=== PATIENT | male | born 1945 | race Caucasian/White ===

== ENCOUNTER → 2019-02-25 15:09 | Outpatient (CLI) | payer MEDICARE, OTHER, SELFPAY ==
[2019-02-25 14:26] VITALS: BMI 36.4
[2019-02-25 15:35] LABS: Hematocrit 42.9 % (40-54); Hemoglobin 13.7 g/dl (13.0-16.5); Mean Corp Hgb Conc 31.9 g/gl (32-36); Mean Corpuscular Hgb 26.2 pg (27.0-32.0); Mean Corpuscular Volume 82.2 fL (80-94); Mean Platelet Vol. 9.3 fl (6.2-12.0); Platelet Count 188 K/mm3 (150-450); RBC Distribution Width CV 16.6 % (11.6-14.6); Red Blood Count 5.22 M/mm3 (4.6-6.2); White Blood Count 6.1 K/mm3 (4.4-11.0)
[2019-02-25 15:36] LABS: Scan Indicated on CBC? Y/N NO
== END ==
PROVIDERS: Family Provider Family Medicine; PCP Family Medicine; Referring Provider Surgery; Visit Provider Surgery
DX: R19.5 Other fecal abnormalities (principal)
CPT/HCPCS: 36415; 85027

== ENCOUNTER 2019-03-27 06:44 | Day surgery (SDC) | payer MEDICARE, OTHER, SELFPAY ==
--- NOTE | 2019-02-25 05:01 | HP_ITS ---
Intake Vital Signs 02/25/19 Height 6 ft 02/25/19 Weight: 269 lb 02/25/19 Body Mass Index (BMI) 36.4 02/25/19 Blood Pressure 126/68 H 02/25/19 Blood Pressure Location Rt brachial 02/25/19 Blood Pressure Position Sitting 02/25/19 Respiratory Rate 18 02/25/19 Pulse Rate 60 02/25/19 Pulse Source Monitor 02/25/19 Temperature 98.3 F 02/25/19 Temperature Source Oral 02/25/19 Pulse Ox 94 02/25/19 Oxygen Delivery Method room air Intake Visit Reasons: POSITIVE COLOGARD TEST Building Official Required: No Is patient in pain?: No Allergies No Known Allergies Allergy (Unverified 02/25/19 14:27) Medications albuterol sulfate HFA 90 mcg/actuation aerosol inhaler 2 puff INHALATION Q6H PRN 02/25/19 [History Confirmed 02/25/19] aspirin 81 mg tablet,delayed release 81 mg PO DAILY 02/25/19 [History Confirmed 02/25/19] atorvastatin 20 mg tablet 20 mg PO DAILY 02/25/19 [History Confirmed 02/25/19] benazepril 20 mg tablet 20 mg PO DAILY 02/25/19 [History Confirmed 02/25/19] budesonide 90 mcg/actuation breath activated powder inhaler 1 inh INHALATION BID 02/25/19 [History Confirmed 02/25/19] [facility] Medical History Positive colorectal cancer screening using Cologuard test (Acute) Asthma (Acute) History of back problems (Acute) Hypercholesterolemia (Acute) Positive colorectal cancer screening using Cologuard test (Acute) Hypertension (Chronic) Surgical History repair broken collar bone (Acute) repairbilateral cataract surgery (Acute) Family History Mother Breast cancer Diabetes Hypertension Sister Breast cancer Social History Smoking Status: Never smoker alcohol intake: current alcohol intake frequency: a few times a week Alcohol type: hard liquor details: Drinks a bottle of whiskey per week. Occasional wine HPI HPI HPI: MISTI MORAN, is a 73 M who presents to the office today for HPI HPI Surgical H&P: Yes HPI: MISTI MORAN, is a 73 M who presents to the office today for positive Cologuard test. 2008 he had a colonoscopy. He states that this was not very comfortable. He has no family history of colon cancer. There was a period of time where he is felt to be anemic and he was placed on iron therapy. A different primary care physician however stopped that. He is not aware that he has had any peptic ulcer disease. He does take daily low-dose aspirin. His last blood work proximally June 2018. He has not noticed any bright red blood per rectum or melena. Cologuard test was positive. He has never had an upper endoscopy. What triggered the positive DNA or hemoglobin test unclear nor is the source. ROS General General: No weight change, appetite, fatigue, colon cancer, breast cancer or weakness HEENT HEENT: Yes eye surgery; no difficulty swallowing, eye injury, swollen glands or hoarseness Endo Endocrine: No thyroid disease, diabetes mellitus, thyroid cancer, Hair loss, heat intolerance or cold intolerance Skin Skin: Yes rash and changing moles Breast Breast: No left breast lump, right breast lump, nipple discharge, breast pain, abnormal mammogram, abnormal US or breast enlargement Musc Musculoskeletal: Yes back problems; no arthritis, rheumatoid arthritis, gout or joint pain Cardio Cardiovascular: Yes high blood pressure; no murmur, pacemaker, heart disease, atrial fibrillation, heart attack, heart stent, palpitations, shortness of breat with exertion or chest pain Psych Psychiatric: No depression, anxiety or hearing voices Resp Respiratory: No shortness of breath, No sleep apnea, No cough, No COPD, Yes asthma, No emphysema, No wheezing Gastro Gastrointestinal: No abdominal pain, No nausea or vomiting, No diarrhea, No constipation, No blood in stool, No acid reflux, No hemorrhoids, No ulcers, No gallbladder problem, No black,tarry stools Andrew Hematologic: No blood thinners, No blood disorders, No bleeding, No anemia, No blood clots Neuro Neurologic: No system reviewed and no additional complaints, except as docu, No as per HPI, No abnormal walking, No abnormal hearing, No abnormal movements, No abnormal speech, No behavioral changes, No burning sensations, No confusion, No seizure-like activity, No unsteadiness, No dizziness, No localized weakness, No frequent falls, No headache(s), No lack of coordination, No loss of vision, No memory loss, No numbness, No other visual disturbances, No radiating pain, No restless legs, No sensory deficit, No fainting, No tingling, No tremor(s), No weakness, No other Exam Const General: cooperative Nutritional Appearance: obese Orientation: alert, awake, oriented x3 HENMT Head: normal to inspection Chest Chest palpation & inspection: normal inspection of the chest Breast Palpation: No nipple discharge Resp Effort & Inspection: normal respiratory effort Auscultation: clear to auscultation bilaterally Cardio Rate: regular rate Rhythm: regular rhythm Heart Sounds: no murmurs GI Palpation: soft, no hepatosplenomegaly Other: Small umbilical hernia, normal bowel sounds Musc Cervical Spine: normal cervical lordosis Skin General: excoriations (Chest, arms, legs) Neuro Cognition: normal cognition Extrem General: no calf tenderness bilaterally Psych Affect: normal affect Assessment & Plan Problems 1. Positive colorectal cancer screening using Cologuard test R19.5 Plan The source of the patient's positive hemoglobin and/or DNA test in the form of Cologuard is unclear whether this is from a upper GI or lower GI source. I have offered the patient a esophagogastroduodenoscopy with possible biopsy and colonoscopy with possible biopsy or polypectomy as indicated. The patient had a uncomfortable previous colonoscopy in 2008. I anticipate having this performed with monitored anesthesia care. We will update his laboratory with a CBC. There is this questionable history of remote anemia. He has had an opportunity to ask and have questions answered. I very much appreciate the kind opportunity of assisting with his surgical care. We will schedule and proceed at his discretion. CC: Dr. Reji Spears M.D., F.A.C.S. Orders Orders: Colonoscopy Today R19.5 EGD Today R19.5 CBC-Complete Blood Cnt No Diff Today R19.5 Coding Level of Care Code Off vis,new,level 3 Diagnoses Positive colorectal cancer screening using Cologuard test R19.5 02/25/19 1701 <Electronically signed by Kevin lowe MD> Date _ Kevin Spears MD I have re-examined the patient. There are no clinical changes since date of exam.
[2019-02-25 14:26] VITALS: BMI 36.4
[2019-03-27] VITALS (7 sets, daily range): BP systolic 62–116; BP diastolic 32–84; PULSE 58–71; RESP 14–18; TEMP 36.2–36.6; O2SAT 88–98; BMI 36.1
--- NOTE | 2019-03-27 08:00 | IMM_PTH ---
PATIENT: MISTI MORAN LOC: EN U#:[id number] AGE/SX: 73/M ROOM: RE03/27/[address]: Dr. Kevin Spears MD : 1945 BED: DIS: 03/27/2019 SPEC #: [id number] RECD: 03/27/19 11:29 STATUS: ALANIS RECecil #: [id number] MECHELLE: 03/27/19 08:[address]: Kevin Spears DEPT: IMMUNOHISTOCHEMISTRY RECD BY: Nilsa Amaya ENTERED: 03/27/19 11:29 SP TYPE: IMMUNO OTHR DR: Dr. Reji Waite MD Tissues: A - Stomach, NOS B - Stomach, NOS Procedures: Synapto (add) CK8 (initial) H Pylori (initial) CD56 (add) CHROMO (add) CK20 (add) CK7 (add) PHYSICIAN & INSTITUTION [place] [id number] SPECIMEN INFORMATION: Tissue Source: A - Antrum biopsy, B - Proximal greater curvature, submucosal mass biopsy Clinical Info: Positive Cologuard test Specimen Number: [id number] & B CPT code: 10087 x2, 09161 x6 METHODOLOGY: Deparaffinized sections of prefer/formalin-fixed tissue or PAP/DQ stained slides are incubated with monoclonal/polyclonal antibodies/oligonucleotide probes. Localization is made via biotin free immunoperoxidase method. Appropriate controls are performed and reacted as expected. Results on target cell population are indicated in the following table: RESULTS: ANTIBODY / CLONE RESULT Block A H Pylori (polyclonal) negative Block B CK7 (OV-TL12/30) negative CK8 (23jdscG83) positive CK20 (KS20.8) negative Chromo (LK2H10) positive, focal Synapto (polyclonal) positive CD56 (123C3.D5) positive Ki-67 (30-9) positive (~15%) These tests were developed and their performance characteristics determined by [facility]. They may not have been cleared or approved by the U.S. Food and Drug Administration. The FDA has determined that such clearance or approval is not necessary. INTERPRETATION: A. Antrum biopsy: Negative for Helicobacter pylori organisms. B. Proximal greater curvature, submucosal mass, biopsy: Well differentiated neuroendocrine tumor (G2), consistent with sporadic (type 3) gastric endocrine tumor. See comment. DENYS:carrie 04/06/19 Comment: B - The specimen was sent to [facility] for expert opinion and reviewed by Dr. Willson and above diagnosis is rendered. The complete report is viewable in the patient's EMR. Case has been reviewed in consultation with Dr. Chino who concurs with the above diagnosis. IDC:[email or web address]
--- NOTE | 2019-03-27 08:00 | EGD_PTH ---
PATIENT: MISTI MORAN LOC: EN U#:[id number] AGE/SX: 73/M ROOM: RE03/27/[address]: Dr. Kevin Spears MD : 1945 BED: DIS: 03/27/2019 SPEC #: [id number] RECD: 03/27/19 09:33 STATUS: ALANIS JAYNE #: [id number] MECHELLE: 03/27/19 08:[address]: Kevin Spears DEPT: SURGICAL PATHOLOGY RECD BY: Lois Sullivan ENTERED: 03/27/19 10:17 SP TYPE: EGD BIOPSY OT DR: Dr. Reji Waite MD Tissues: A - Gastric mucous membrane B - Gastric mucous membrane C - Esophagus, NOS D - Gastric mucous membrane E - Sigmoid colon biopsy Procedures: Surgery Specimen Level IV HEADER OPERATION: Colonoscopy, EGD ([facility] [place]) PRE-OP DIAGNOSIS: Positive Cologuard test TISSUE SUBMITTED: A. Antrum biopsy for histo and H. pylori, B. Proximal greater curve, submucosal mass biopsy, C. Distal esophagus biopsy, D. Hepatic flexure polyp, E. Distal sigmoid polyp MICROSCOPIC DIAGNOSIS A. Antrum biopsy: Mild gastritis. See microscopic description and comment. B. 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 Fundic mucosa within normal limits. See comment. C. Distal esophagus, biopsy: Fragments of squamous epithelium with mild chronic inflammation. D. Hepatic flexure polyp, biopsy: Fragments of hyperplastic polyp. Fragments of fecal material. E. Distal sigmoid polyp, biopsy: Fragments of tubular adenoma. SJ:carrie 04/06/19 COMMENT A. The results of immunohistochemistry for Helicobacter pylori will be reported separately ([id number]). B. Immunohistochemistry ([id number]) supports the above diagnosis. This case was sent to [facility] for expert opinion and reviewed by Dr. Willson and above diagnosis is rendered. The complete report is viewable in the patient's EMR. Case has been reviewed in consultation with Dr. Chino who concurs with the above diagnosis. IDC:AM MICROSCOPIC DESCRIPTION Slides are reviewed. A. The specimen shows fragments of gastric mucosa with chronic inflammatory cell infiltrates in the lamina propria consisting of lymphocytes and plasma cells, consistent with mild chronic gastritis. GROSS DESCRIPTION A - Received in fixative is one container labeled with the patient's name and designated antrum biopsy. The specimen consists of a single aevry-pink fragment of soft tissue measuring 0.5 x 0.1 x 0.1 cm. The specimen is totally submitted in one cassette. B - Received in fixative is one container labeled with the patient's name and designated proximal greater curvature submucosal mass. The specimen consists of four avery-pink fragments of soft tissue measuring in aggregate 0.5 x 0.3 x 0.2 cm. The specimen is totally submitted in one cassette. C - Received in fixative is one container labeled with the patient's name and designated distal esophagus biopsy. The specimen consists of a single reddish-pink fragment of soft tissue measuring 0.4 x 0.1 x 0.1 cm. The specimen is totally submitted in one cassette. D - Received in fixative is one container labeled with the patient's name and designated hepatic flexure polyp. The specimen consists of multiple irregular fragments of reddish-pink soft tissue and possible fecal material that in aggregate measure 0.3 x 0.2 x 0.1 cm. The specimen is totally submitted in one cassette. E - Received in fixative is one container labeled with the patient's name and designated distal sigmoid polyp. The specimen consists of three avery-pink polypoid fragments of mucosal-lined soft tissue ranging in diameter from 0.25 to 0.8 cm. The specimen is totally submitted in one cassette. / CE:carrie 03/27/19 TC:1 [facility]: [id number] x4
--- NOTE | 2019-04-01 10:44 | OP.ENDO_ITS ---
04/01/2019 Reji Waite Re : Upper GI endoscopy procedure for Kirill Waite This procedure was performed on Wednesday, March 27, 2019. My impressions and recommendations are as follows: Impressions : - Z-line regular, 40 cm from the incisors. - Small hiatal hernia. - Erythematous mucosa in the antrum. Biopsied. - Gastric tumor on the greater curvature of the stomach. Biopsied. - Normal examined duodenum. - Biopsies were taken with a cold forceps for histology at the gastroesophageal junction. Recommendations : - Discharge patient to home. - Resume previous diet. - Continue present medications. - Telephone my office for pathology results in 1 week. My findings are described in the full procedure note, which is enclosed. If I can be of further assistance, please feel free to contact me at Doctor phone number(s): Work: . Sincerely, Kevin Spears MD 03/27/2019 8:52:19 AM This report has been signed electronically.
--- NOTE | 2019-04-01 10:44 | OP.ENDO_ITS ---
04/01/2019 Reji Waite Re : Colonoscopy procedure for Kirill Waite This procedure was performed on Wednesday, March 27, 2019. My impressions and recommendations are as follows: Impressions : - Hemorrhoids found on perianal exam. - One 6 mm polyp at the hepatic flexure, removed with a cold snare. Resected and retrieved. - One 10 mm polyp in the distal sigmoid colon, removed with a hot snare. Resected and retrieved. - Diverticulosis in the sigmoid colon and in the descending colon. Recommendations : - Discharge patient to home. - Resume previous diet. - Continue present medications. - Repeat colonoscopy in 3 years for surveillance based on pathology results. - Telephone my office for pathology results in 1 week. My findings are described in the full procedure note, which is enclosed. If I can be of further assistance, please feel free to contact me at Doctor phone number(s): Work: . Sincerely, Kevin Spears MD 03/27/2019 8:56:44 AM This report has been signed electronically.
== END 2019-03-27 09:42 | disposition home or self-care (01) ==
LOC: EN 06:45 → AC 06:46
PROVIDERS: Family Provider Family Medicine; PCP Family Medicine; Referring Provider Family Medicine; Visit Provider Surgery
PROC: 0DJD8ZZ Inspection of Lower Intestinal Tract, Via Natural or Artificial Opening Endoscopic (ICD-10-PCS; CPT 45378; principal; 2019-03-27 07:55)
DX: R19.5 Other fecal abnormalities (principal); D64.9 Anemia, unspecified; E78.00 Pure hypercholesterolemia, unspecified; N40.0 Benign prostatic hyperplasia without lower urinary tract symptoms; I10 Essential (primary) hypertension; J45.909 Unspecified asthma, uncomplicated; K44.9 Diaphragmatic hernia without obstruction or gangrene; K31.89 Other diseases of stomach and duodenum; D49.0 Neoplasm of unspecified behavior of digestive system; K64.9 Unspecified hemorrhoids; D12.3 Benign neoplasm of transverse colon; D12.5 Benign neoplasm of sigmoid colon; K57.30 Diverticulosis of large intestine without perforation or abscess without bleeding
CPT/HCPCS: 43239; 45385; 88305; 88341; 88342; J7120; J2405

== ENCOUNTER → 2019-04-07 10:39 | Outpatient (CLI) | payer MEDICARE, OTHER, SELFPAY ==
[2019-03-27 07:09] VITALS: BMI 36.1
--- NOTE | 2019-04-07 10:42 | CT_ITS ---
STUDY: CT ABDOMEN AND PELVIS WITH CONTRAST REASON FOR EXAM: Male, 73 years old. Gastric mass seen on scope. RADIATION DOSAGE (If Supplied By Facility): CTDIvol = ( 15.45 ) mGy, DLP = ( 1523.54 ) mGycm TECHNIQUE: Transaxial images were obtained from the dome of the diaphragm to the symphysis pubis with oral contrast. 100ML ml of Isovue 300 contrast was administered. Sagittal and coronal images were reconstructed. Individualized dose optimization techniques were used for this CT. COMPARISON: None. FINDINGS: Body wall soft tissues: No acute process. Osseous structures: No acute process. Mild multilevel lumbar spondylosis with more prominent degenerative disc disease L5-S1 contributing to mild foraminal narrowing. Disc bulging at L4-L5 and facet hypertrophy also contribute to mild foraminal narrowing. Inferior chest: The lung bases are clear with hyperlucent features suggesting underlying COPD. Distal esophagus normal. Mild coronary cusp secretions are visible. No cardiomegaly or pericardial effusion. Minimal aortic valve annulus and leaflet calcifications. Hepatobiliary: Multiple small hepatic cystlike foci are present, nonenhancing, oval, sharply circumscribed margins, largest in the left liver 2.6 cm, and largest in the right liver 1.6 cm. Simple cystic features. Normal gallbladder and biliary tree. Pancreas: Moderate fatty atrophy. Spleen: Normal. Adrenal glands: Normal. Urogenital: Unremarkable kidneys, symmetric nephrograms. Normal collecting systems, ureters, urinary bladder, prostate and seminal vesicles. Pelvic floor and sidewalls and retroperitoneum: No mass or adenopathy. Vasculature: Mild atherosclerosis. Stomach: Initial imaging of the stomach was performed that did not contain oral contrast. The contrast had moved into the small bowel. Additional oral contrast was administered, and another set of abdominal images was obtained with the stomach properly filled with oral contrast. -Along the greater curvature of the gastric fundus there is a small oval projection from the gastric mucosa, measuring approximately 1 cm. This is difficult to distinguish from surrounding normal rugae. -In the gastric body along the greater curvature, there is a focus of soft tissue thickening of the wall distinct from the adjacent normal rugae, measuring approximately 2.9 cm in length, 1.3 cm in thickness. This is centered on axial series 1002 image 162, and image 28. This region is not well discriminated on coronal or sagittal images. This region appears to be distinct from the surrounding normal rugae. At the level of the pylorus, there is a apparent oval nodular focus measuring 11 mm, projecting within the lumen, best appreciated on axial image 39 and 174, coronal image 96, and sagittal image 109. This is difficult to discriminate from adjacent normal rugae and could merely represent a pyloric muscular band. The location of the suspected lesion on endoscopy is not reported. The gastric serosa appears normal and the surrounding fat normal. Small bowel and mesentery: No acute process. Large bowel: Distal descending and proximal sigmoid diverticulosis without diverticulitis. Normal rectum. Normal appendix. Free fluid or free air: None. CT/Abdomen/Pelvis WITH Contrast IMPRESSION: Gastric features as described in detail above are not entirely distinct or convincing. Correlation with localization on recent endoscopy is recommended. The most convincing region lies within the gastric body along the greater curvature where there appears to be a nearly full-thickness abnormality of the gastric wall. However it would be difficult to discern a lesion from muscular contraction. Electronically Signed: Everardo Domingo MD at 15:35 EDT Tel , Service support ,
[2019-04-07 13:01] LABS: EGFR FINGERSTICK > 60.0000 mL/min (>60)
== END ==
PROVIDERS: Family Provider Family Medicine; PCP Family Medicine; Referring Provider Surgery; Visit Provider Surgery
DX: Z01.812 Encounter for preprocedural laboratory examination (principal); R19.00 Intra-abdominal and pelvic swelling, mass and lump, unspecified site
CPT/HCPCS: 74177; Q9967

== ENCOUNTER → 2023-06-28 | Outpatient (CLI) | payer MEDICARE, SELFPAY ==
[2023-06-30 21:07] LABS: Gastrin, Serum 28 pg/mL (0-115)
== END | disposition home or self-care (01) ==
LOC: LAB 12:01
PROVIDERS: PCP Family Medicine; Referring Provider Internal Medicine Gastroenterology; Visit Provider Internal Medicine Gastroenterology
DX: R19.5 Other fecal abnormalities (principal); E78.5 Hyperlipidemia, unspecified
CPT/HCPCS: 36415; 82941

== ENCOUNTER 2023-08-12 10:38 | Day surgery (SDC) | payer MEDICARE, SELFPAY ==
[2023-08-12] VITALS (7 sets, daily range): BP systolic 77–122; BP diastolic 59–83; PULSE 67–80; RESP 14–16; TEMP 36.2–36.4; O2SAT 93–97; BMI 34.5
--- NOTE | 2023-08-12 | IMM_PTH ---
PATIENT: MISTI MORAN LOC: EN U#:[id number] AGE/SX: 78/M ROOM: RE08/12/[address]: Dr. Shaggy Harvey DO : 1945 BED: DIS: 08/12/2023 SPEC #: [id number] RECD: 08/13/23 13:39 STATUS: ALANIS REQ #: [id number] MECHELLE: 08/12/23 00:[address]: Shaggy Harvey DEPT: IMMUNOHISTOCHEMISTRY RECD BY: Nilsa Amaya ENTERED: 08/13/23 13:40 SP TYPE: IMMUNO OTHR DR: Dr. Reji Waite MD Tissues: A - Stomach, NOS Procedures: H Pylori (initial) PHYSICIAN & INSTITUTION [place] [id number] SPECIMEN INFORMATION: Tissue Source: A - Gastric cardia polyp Clinical Info: History of neuroendocrine cancer, screening Specimen Number: [id number] CPT code: 45358 METHODOLOGY: Deparaffinized sections of prefer/formalin-fixed tissue or PAP/DQ stained slides are incubated with monoclonal/polyclonal antibodies/oligonucleotide probes. Localization is made via biotin free immunoperoxidase method. Appropriate controls are performed and reacted as expected. Results on target cell population are indicated in the following table: RESULTS: ANTIBODY / CLONE RESULT Block A H Pylori (polyclonal) negative These tests were developed and their performance characteristics determined by [facility]. They may not have been cleared or approved by the U.S. Food and Drug Administration. The FDA has determined that such clearance or approval is not necessary. The above immunohistochemical/dualISH markers are ordered and reviewed by the Pathologist. INTERPRETATION: A. Gastric cardia polyp, biopsy: Negative for Helicobacter pylori organisms. AM:carrie 08/14/2023
[2023-08-12] MEDS: Lactated Ringers 1,000 ML 15 ML IV (11:04)
--- NOTE | 2023-08-12 11:45 | EGD_PTH ---
PATIENT: MISTI MORAN LOC: EN U#:[id number] AGE/SX: 78/M ROOM: RE08/12/[address]: Dr. Shaggy Harvey DO : 1945 BED: DIS: 08/12/2023 SPEC #: [id number] RECD: 08/12/23 13:48 STATUS: ALANIS JAYNE #: [id number] MECHELLE: 08/12/23 11:[address]: Shaggy Harvey DEPT: SURGICAL PATHOLOGY RECD BY: Sabine Rachel ENTERED: 08/13/23 10:49 SP TYPE: EGD BIOPSY ALEXIS DR: Dr. Reji Waite MD Tissues: A - Gastric mucous membrane B - Duodenum, NOS C - Cecum, NOS D - Transverse colon Procedures: Surgery Specimen Level IV HEADER OPERATION: Colonoscopy with biopsy, polyp biopsy, EGD with biopsy PRE-OP DIAGNOSIS: History of neuroendocrine cancer, screening TISSUE SUBMITTED: A - Gastric cardia polyp, B - Duodenum biopsy, C - Ileocecal valve biopsy, D - Transverse colon polyp MICROSCOPIC DIAGNOSIS A. Gastric cardia polyp, biopsy: Mild hyperplastic change. See comment. B. Duodenum, biopsy: Gastric metaplasia and mild nonspecific chronic inflammation. C. Ileocecal valve, biopsy: No pathologic change. D. Transverse colon polyp, biopsy: Fragments of hyperplastic polyp. AM:carrie 08/14/2023 COMMENT A. The results of immunohistochemistry for Helicobacter pylori will be reported separately ([id number]). MICROSCOPIC DESCRIPTION Slides are reviewed. GROSS DESCRIPTION A - Received in fixative is one container labeled with the patient's name and designated gastric cardia polyp biopsy. The specimen consists of two irregular fragments of light avery soft tissue that in aggregate measure 0.6 x 0.6 x 0.1 cm. The specimen is totally submitted in one cassette. B - Received in fixative is one container labeled with the patient's name and designated duodenum biopsy. The specimen consists of two irregular fragments of light avery soft tissue that in aggregate measure 0.7 x 0.3 x 0.1 cm. The specimen is totally submitted in one cassette. C - Received in fixative is one container labeled with the patient's name and designated ileocecal valve biopsy. The specimen consists of one irregular fragment of light avery soft tissue that measures 0.6 x 0.2 x 0.1 cm. The specimen is totally submitted in one cassette. D - Received in fixative is one container labeled with the patient's name and designated transverse colon polyp. The specimen consists of multiple irregular fragments of light avery soft tissue that in aggregate measure 0.6 x 0.5 x 0.1 cm. The specimen is totally submitted in one cassette. / AM:carrie 08/13/2023 TC:3 CPT: 21019 x4
--- NOTE | 2023-08-12 11:50 | HP.PCM_ITS ---
History and Physical Date of Admission: 08/12/23 78 M who presents to the office today for PMH DMII; HLD; asthma; BPH.? FH son ill-defined autoimmune hepatic disease. [facility] referred 02.25.19 for screening colonoscopy for positive Cologuard; EGD included. ? 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 ? Colonoscopy hemorrhoids; diverticulosis; two polyps, TA and hyperplastic ? Referred to [facility] surgical oncology for management. ? CT abd/pel 04.07.19 lumbar spondylosis with prominent degenerative disc disease; lungs suggestive of COPD; hepatic cysts; pancreas with fatty atrophy; full thickness of greater curvature of stomach [facility] Hospitalization 08.28.19-08.30.19. 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 Discharged without complication. PCP OV 02.04.23 as well visit without health complaints. IBS and history of gastrin cancer noted and referred to GI. ? Biochemical CMP, LFT, A1c (6.7), lipids, triglycerides, lyme (abnormal) *[facility] established 06.28.23 for follow up of history as above; he was not specifically told that he has NET. Remains active with walking each day; diet is good with increased fruit intake, enjoys ice cream. ROS Const Constitutional: No anorexia, fatigue, fever(s), weight change or sleep problems Eyes Eyes: No change in vision ENT ENT: No abnormal hearing, difficulty swallowing, mouth lesions, tongue swelling or throat swelling Resp Respiratory: No cough or shortness of breath Cardio Cardiology: No chest pain at rest, chest pain with exertion, shortness of breath or dyspnea on exertion Gastro GI: No difficulty swallowing Genitourinary Male: No difficulty urinating or burning urination Musc Musculoskeletal: No joint pain, joint swelling, muscle weakness or decreased muscle mass Skin Skin: No hair loss in leg, yellowing of the eye, itchy eyes, rash, skin ulcer or skin swelling Neuro Neurology: No abnormal hearing, abnormal movements, confusion, unsteady gait/balance or memory loss Psych Psychiatric: No anxiety, No confusion and No memory loss Endo Endocrine: No fatigue or weight change Aller/Imm Allergy/Immunologic: No itchy eyes, throat swelling or tongue swelling Andrew/Lymp Hematologic/Lymphatic: No easy bleeding, easy bruising or enlarged lymph nodes Exam Const General: cooperative and comfortable Nutritional Appearance: average body habitus and well nourished [facility] Head: normal to inspection Ears: hearing grossly normal bilaterally Nose: external nose normal Face and sinus: normal facial exam Mouth: oral mucosae normal Throat: posterior oropharynx normal Eyes General: appearance normal, both eyes and all related structures Neck Neck: normal visual inspection Chest Chest palpation & inspection: normal inspection of the chest and normal palpation of entire chest wall Resp Effort & Inspection: normal respiratory effort Auscultation: Bilateral: Clear to Auscultation Cardio Palpation: normal PMI Rate: regular rate Rhythm: regular rhythm GI Inspection: normal to inspection Auscultation: normal bowel sounds Percussion: normal to percussion Palpation: no hepatosplenomegaly Skin General: no rashes or lesions noted Neuro General: patient alert Extrem General: normal to inspection Psych Affect: normal affect Quality Reporting Tobacco Screening ([facility] 138) Smoking Status: Never smoker Assessment and Plan Assessment and Plan (1) History of neuroendocrine cancer: Status: Chronic Plan: He had a neuroendocrine tumor stage III status post wedge resection without any need for further treatment. We will get a serum gastrin level along with surveillance of his surgical site. I told him most of neuroendocrine tumors in the stomach come from hypergastrinemia or H. pylori. (2) Colon cancer screening: Status: Acute Plan: He will undergo repeat colonoscopy because of a history of adenomatous polyps. He was explained alternatives, risk, benefits including not withstanding bleeding, infection, sepsis, perforation, need for emergent surgery . He will have an ASA of 3. Orders: Orders Gastrin, Serum Today E78.5 - Hyperlipidemia, unspecified, R19.5 - Other fecal abnormalities EGD 08/12/23 R19.5 - Other fecal abnormalities, Z12.11 - Encounter for screening for malignant neoplasm of colon, Z85.89 - Personal history of malignant neoplasm of other organs and systems Colonoscopy 08/12/23 Z12.11 - Encounter for screening for malignant neoplasm of colon I have examined the patient and the H&P has been reviewed. There are no clinical changes since date of exam.
--- NOTE | 2023-08-12 12:24 | OP.EGD_ITS ---
Patient Name: Kirill Grider Procedure Date: 08/12/2023 11:47 AM Date of : 1945 Age: 78 Procedure: Upper GI endoscopy Indications: Epigastric abdominal pain Providers: Shaggy Harvey DO Medicines: Monitored Anesthesia Care Patient Profile: This is a 78 year old male. Refer to note in patient chart for documentation of history and physical. Patient has symptoms of chronic dyspepsia. His most recent EGD for biopsy. He is status post gastrectomy within the past year. Complications: No immediate complications. Procedure: Pre-Anesthesia Assessment: - Prior to the procedure, a History and Physical was performed, and patient medications and allergies were reviewed. The patient is competent. The risks and benefits of the procedure and the sedation options and risks were discussed with the patient. All questions were answered and informed consent was obtained. Patient identification and proposed procedure were verified by the physician in the pre-procedure area. Mental Status Examination: alert and oriented. Airway Examination: normal oropharyngeal airway and neck mobility. Respiratory Examination: clear to auscultation. CV Examination: normal. Prophylactic Antibiotics: The patient does not require prophylactic antibiotics. Prior Anticoagulants: The patient has taken no anticoagulant or antiplatelet agents. ASA Grade Assessment: II - A patient with mild systemic disease. After reviewing the risks and benefits, the patient was deemed in satisfactory condition to undergo the procedure. The anesthesia plan was to use monitored anesthesia care (MAC). Immediately prior to administration of medications, the patient was re-assessed for adequacy to receive sedatives. The heart rate, respiratory rate, oxygen saturations, blood pressure, adequacy of pulmonary ventilation, and response to care were monitored throughout the procedure. The physical status of the patient was re-assessed after the procedure. After obtaining informed consent, the endoscope was passed under direct vision. Throughout the procedure, the patient's blood pressure, pulse, and oxygen saturations were monitored continuously. The Colonoscope was introduced through the mouth, and advanced to the second part of duodenum. The upper GI endoscopy was accomplished without difficulty. The patient tolerated the procedure well. Scope In: 11:55:28 AM Scope Out: 12:00:01 PM Total Procedure Duration Time 0 hours 4 minutes 33 seconds Findings: The examined esophagus was normal. Evidence of a previous surgical anastomosis was found in the greater curvature of the stomach. This was characterized by healthy appearing mucosa. Two 5 mm sessile polyps with no stigmata of recent bleeding were found in the gastric fundus. The polyp was removed with a cold snare. Resection and retrieval were complete. Verification of patient identification for the specimen was done. Few non-bleeding superficial duodenal ulcers with no stigmata of bleeding were found in the duodenal bulb. The largest lesion was 2 mm in largest dimension. Biopsies were taken with a cold forceps for histology. Verification of patient identification for the specimen was done. Estimated blood loss was minimal. Impression: - Normal esophagus. - A previous surgical anastomosis was found, characterized by healthy appearing mucosa. - Two gastric polyps. Resected and retrieved. - Non-bleeding duodenal ulcers with no stigmata of bleeding. Biopsied. Recommendation: - Discharge patient to home. - Resume previous diet. - Continue present medications. - Await pathology results. Procedure Code(s): --- Professional --- 57119, Esophagogastroduodenoscopy, flexible, transoral; with removal of tumor(s), polyp(s), or other lesion(s) by snare technique 30672, 59, Esophagogastroduodenoscopy, flexible, transoral; with biopsy, single or multiple CPT copyright 2021 [employer]. All rights reserved. The codes documented in this report are preliminary and upon professional fee coder review may be revised to meet current compliance requirements. Shaggy Harvey DO 08/12/2023 12:24:24 PM This report has been signed electronically. Number of Addenda: 0 Note Initiated On: 08/12/2023 11:47 AM
--- NOTE | 2023-08-12 12:25 | OP.CCLET_ITS ---
08/12/2023 Reji Waite Re : Upper GI endoscopy procedure for Kirill Erickson Ravindra This procedure was performed on Saturday, August 12, 2023. My impressions and recommendations are as follows: Impressions : - Normal esophagus. - A previous surgical anastomosis was found, characterized by healthy appearing mucosa. - Two gastric polyps. Resected and retrieved. - Non-bleeding duodenal ulcers with no stigmata of bleeding. Biopsied. Recommendations : - Discharge patient to home. - Resume previous diet. - Continue present medications. - Await pathology results. My findings are described in the full procedure note, which is enclosed. If I can be of further assistance, please feel free to contact me at . Sincerely, Shaggy Harvey, 08/12/2023 12:24:24 PM This report has been signed electronically.
--- NOTE | 2023-08-12 12:27 | OP.COLON_ITS ---
Patient Name: Kirill Grider Procedure Date: 08/12/2023 12:00 PM Date of : 1945 Age: 78 Procedure: Colonoscopy Indications: Screening for colorectal malignant neoplasm Providers: Shaggy Harvey DO Medicines: Monitored Anesthesia Care Patient Profile: This is a 78 year old male. Refer to note in patient chart for documentation of history and physical. Patient has symptoms of chronic dyspepsia. His most recent EGD for biopsy. He is status post gastrectomy within the past year. Last Colonoscopy: more than 10 years ago. Complications: No immediate complications. Procedure: Pre-Anesthesia Assessment: - Prior to the procedure, a History and Physical was performed, and patient medications and allergies were reviewed. The patient is competent. The risks and benefits of the procedure and the sedation options and risks were discussed with the patient. All questions were answered and informed consent was obtained. Patient identification and proposed procedure were verified by the physician in the pre-procedure area. Mental Status Examination: alert and oriented. Airway Examination: normal oropharyngeal airway and neck mobility. Respiratory Examination: clear to auscultation. CV Examination: normal. Prophylactic Antibiotics: The patient does not require prophylactic antibiotics. Prior Anticoagulants: The patient has taken no anticoagulant or antiplatelet agents. ASA Grade Assessment: II - A patient with mild systemic disease. After reviewing the risks and benefits, the patient was deemed in satisfactory condition to undergo the procedure. The anesthesia plan was to use monitored anesthesia care (MAC). Immediately prior to administration of medications, the patient was re-assessed for adequacy to receive sedatives. The heart rate, respiratory rate, oxygen saturations, blood pressure, adequacy of pulmonary ventilation, and response to care were monitored throughout the procedure. The physical status of the patient was re-assessed after the procedure. After I obtained informed consent, the scope was passed under direct vision. Throughout the procedure, the patient's blood pressure, pulse, and oxygen saturations were monitored continuously. The Colonoscope was introduced through the anus and advanced to the terminal ileum. The colonoscopy was performed without difficulty. The patient tolerated the procedure well. The quality of the bowel preparation was adequate. The terminal ileum, ileocecal valve, appendiceal orifice, and rectum were photographed. Scope In: 12:01:28 PM Scope Withdrawal Time 0 hours 10 minutes 20 seconds Scope Out: 12:16:05 PM Total Procedure Duration Time 0 hours 14 minutes 37 seconds Findings: The perianal and digital rectal examinations were normal. A few small and large-mouthed diverticula were found in the recto-sigmoid colon, sigmoid colon, hepatic flexure and ascending colon. A 5 mm polyp was found in the transverse colon. The polyp was sessile. The polyp was removed with a cold snare. Resection and retrieval were complete. Verification of patient identification for the specimen was done. Estimated blood loss was minimal. An area of mildly congested mucosa was found in the cecum and at the ileocecal valve. Biopsies were taken with a cold forceps for histology. Verification of patient identification for the specimen was done. Estimated blood loss was minimal. Impression: - Diverticulosis in the recto-sigmoid colon, in the sigmoid colon, at the hepatic flexure and in the ascending colon. - One 5 mm polyp in the transverse colon, removed with a cold snare. Resected and retrieved. - Congested mucosa in the cecum and at the ileocecal valve. Biopsied. Recommendation: - Discharge patient to home. - Resume previous diet. - Continue present medications. - Await pathology results. - Repeat colonoscopy in 5 years for surveillance. Procedure Code(s): --- Professional --- 51634, Colonoscopy, flexible; with removal of tumor(s), polyp(s), or other lesion(s) by snare technique 30133, 59, Colonoscopy, flexible; with biopsy, single or multiple CPT copyright 2021 [employer]. All rights reserved. The codes documented in this report are preliminary and upon profile grinder review may be revised to meet current compliance requirements. Shaggy Harvey DO 08/12/2023 12:27:19 PM This report has been signed electronically. Number of Addenda: 0 Note Initiated On: 08/12/2023 12:00 PM
--- NOTE | 2023-08-12 12:28 | OP.CCLET_ITS ---
08/12/2023 Reji Waite Re : Colonoscopy procedure for Kirill Erickson Ravindra This procedure was performed on Saturday, August 12, 2023. My impressions and recommendations are as follows: Impressions : - Diverticulosis in the recto-sigmoid colon, in the sigmoid colon, at the hepatic flexure and in the ascending colon. - One 5 mm polyp in the transverse colon, removed with a cold snare. Resected and retrieved. - Congested mucosa in the cecum and at the ileocecal valve. Biopsied. Recommendations : - Discharge patient to home. - Resume previous diet. - Continue present medications. - Await pathology results. - Repeat colonoscopy in 5 years for surveillance. My findings are described in the full procedure note, which is enclosed. If I can be of further assistance, please feel free to contact me at . Sincerely, Shaggy Harvey, 08/12/2023 12:27:19 PM This report has been signed electronically.
== END 2023-08-12 13:29 | disposition home or self-care (01) ==
LOC: EN 10:41 → AC 11:09
PROVIDERS: PCP Family Medicine; Referring Provider Family Medicine; Visit Provider Internal Medicine Gastroenterology
PROC: 0DJD8ZZ Inspection of Lower Intestinal Tract, Via Natural or Artificial Opening Endoscopic (ICD-10-PCS; CPT 45378; principal; 2023-08-12 11:40)
DX: Z12.11 Encounter for screening for malignant neoplasm of colon (principal); K57.30 Diverticulosis of large intestine without perforation or abscess without bleeding; K26.9 Duodenal ulcer, unspecified as acute or chronic, without hemorrhage or perforation; K63.5 Polyp of colon; K63.89 Other specified diseases of intestine; K31.7 Polyp of stomach and duodenum; Z85.89 Personal history of malignant neoplasm of other organs and systems; E78.00 Pure hypercholesterolemia, unspecified; Z98.0 Intestinal bypass and anastomosis status; K31.A0 Gastric intestinal metaplasia, unspecified; K29.80 Duodenitis without bleeding; J45.909 Unspecified asthma, uncomplicated; I10 Essential (primary) hypertension; Z79.899 Other long term (current) drug therapy
CPT/HCPCS: 43239; 45380; 45385; 43251; 88305; 88342; J7120; J2405

== ENCOUNTER → 2024-06-30 | Outpatient (CLI) | payer MEDICARE, SELFPAY ==
[2024-06-30 10:58] LABS: Absolute Lymphocyte Count 1.55 X10^3/uL (0.83-4.51); Absolute Neutrophil Count 3.3 X10^3/uL (2.0-7.7); Basophil# 0.06 X10^3/uL; Eosinophil# 0.37 X10^3/uL; Eosinophils% 6.4 % (0-5); Hematocrit 43.7 % (40-54); Hemoglobin 14.3 g/dL (13.0-16.5); Lymphocyte # 1.55 X10^3/ul (0.83-4.51); Lymphocyte % 26.9 % (19-41); Mean Corp Hgb Conc 32.7 g/dL (32-36); Mean Corpuscular Hgb 28.5 pg (27.0-32.0); Mean Corpuscular Volume 87.2 fL (80-94); Mean Platelet Vol. 9.6 fl (6.2-12.0); Monocyte# 0.44 X10^3/uL; Monocyte% 7.6 % (0-10); NRBC Flagged by Analyzer 0 % (0-5); Neutrophil # 3.34 X10^3/uL (2.7-7.7); Neutrophil % 57.9 % (47-70); Platelet Count 209 K/mm3 (150-450); RBC Distribution Width CV 14.7 % (11.6-14.6); RBC Distribution Width SD 47.1 fl (35.1-43.9); RET-HE 31.2 pg (30-35); Red Blood Count 5.01 M/mm3 (4.6-6.2); Reticulocyte Count 1.54 % (0.5-1.5); White Blood Count 5.8 K/mm3 (4.4-11.0)
[2024-06-30 11:29] LABS: Ferritin 9 ng/mL (26-388); Iron 72 ug/dL (65-175); Iron Binding Capacity,Total 393 ug/dL (250-450); LDH 166 U/L (87-241)
[2024-07-01 16:11] LABS: Albumin 3.6 g/dL (2.9-4.4); Alpha-1-Globulins 0.3 g/dL (0.0-0.4); Alpha-2-Globulins 0.9 g/dL (0.4-1.0); Endomysial Antibody IgA Negative (Negative); Gamma Globulin 0.7 g/dL (0.4-1.8); Haptoglobin 184 mg/dL (34-355); Immunoglobulin A 167 mg/dL (61-437); Immunoglobulin G 822 mg/dL (603-1613); Immunoglobulin M 37 mg/dL (15-143); PROEL- TOTAL PROTEIN 6.5 g/dL (6.0-8.5); t-Transglutaminase IgA <2 U/mL (0-3)
== END | disposition home or self-care (01) ==
LOC: LAB 09:39
PROVIDERS: PCP Family Medicine
DX: K62.5 Hemorrhage of anus and rectum (principal); Z85.89 Personal history of malignant neoplasm of other organs and systems; D64.9 Anemia, unspecified
CPT/HCPCS: 36415; 82728; 82784; 83010; 83516; 83540; 83550; 83615; 84165; 85025; 85045; 86255; 86334

== ENCOUNTER → 2024-07-24 | Outpatient (CLI) | payer MEDICARE, SELFPAY ==
--- NOTE | 2024-07-24 13:55 | CT_ITS ---
STUDY: CTA ABDOMEN AND PELVIS WITH CONTRAST REASON FOR EXAM: Male, 79 years old. Bleeding per rectum RADIATION DOSAGE (If Supplied By Facility): CTDIvol = ( 26.25 ) mGy, DLP = ( 1369.68 ) mGycm TECHNIQUE: Transaxial images were obtained from the dome of the diaphragm to the symphysis pubis without oral contrast. IV 100mL Isovue-370 was administered. Sagittal and coronal images were reconstructed. 3-D images were reconstructed. Individualized dose optimization techniques were used for this CT. COMPARISON: April 07, 2019 FINDINGS: The visualized lung bases are unremarkable. The visualized portions of the heart are within normal limits. There are 3.5 and 2.4 cm cysts in the liver. Normal gallbladder and extrahepatic biliary system. There is a benign calcified granuloma of the spleen. There is diffuse atrophy of the pancreas. Normal bilateral adrenal glands. Normal right kidney. Normal left kidney. There is postoperative change of the stomach. Normal small intestine. Normal colon. The appendix is visualized and appears normal. There is diffuse atherosclerotic calcification of the abdominal aorta and branches, without a demonstrated aneurysm. There is no active hemorrhage seen. Normal inferior vena cava. Normal retroperitoneum. Normal urinary bladder. There is no free fluid in the abdomen or pelvis. Normal abdominal wall. There is degenerative change of the spine and hips. CT/CTA Abd/Pelvis W/WO Contrast IMPRESSION: Atherosclerosis. No aneurysm or dissection. No active hemorrhage seen. Colonic diverticulosis. No obstruction or abscess. Electronically Signed: Bebeto Mera MD at 10:10 EDT ,
[2024-07-24 14:18] LABS: CREATININE FINGERSTICK < 1.0 mg/dL (0.70-1.30); EGFR FINGERSTICK > 60.0000 mL/min (>60)
== END | disposition home or self-care (01) ==
LOC: CT 13:52
PROVIDERS: PCP Family Medicine
DX: K62.5 Hemorrhage of anus and rectum (principal); Z85.89 Personal history of malignant neoplasm of other organs and systems
CPT/HCPCS: 74174; Q9967

== ENCOUNTER 2024-07-27 10:40 | Day surgery (SDC) | payer MEDICARE, SELFPAY ==
[2024-07-07 02:08] LABS: Pancreatic Elastase, Fecal 504 (>200)
[2024-07-07 20:08] LABS: Calprotectin, Stool 42 ug/g (0-120); Fats, Neutral Normal (.); Fats, Total Normal (.)
[2024-07-27] VITALS (8 sets, daily range): BP systolic 88–115; BP diastolic 58–79; PULSE 61–65; RESP 16; TEMP 35.9–36.1; O2SAT 91–95; BMI 35.2
--- NOTE | 2024-07-27 11:04 | HP.PCM_ITS ---
History and Physical Date of Admission: 07/27/24 Chief Complaint: Rectal bleeding Details: MISTI MORAN, is a 79 M who presents to the office today for OV with complaints of bleeding per rectum. He states that he woke 4 days ago in a pool of blood in his bed, unbeknownst to him. He has continued to have varying degrees and amounts of hematochezia over the weekend, for which he was encouraged by office staff on Saturday to go to the emergency room to investigate cause and he insisted on waiting for this appointment. So far, yesterday and today, he's only seen a small amount of bleeding per rectum. He reports one instance of incontinence while in the shower this weekend. He denies abdominal pain and cramping. He denies feeling faint, dizzy or lightheaded with position changes. He denies difficulty chewing and swallowing. He reports heartburn without reflux. Prior to bleed from rectum, he states that his BMs have been soft and formed with complete evacuation and without straining. He denies having sustained rectal trauma or participating in anal intercourse to bring about the rectal bleeding. He reports history of wedge gastrectomy 07/2023 for management of NET of proximal greater curvature of the stomach. ROS Const Constitutional: Positive for weight change; No chills, fatigue or fever(s) Eyes Eyes: No blurry vision or change in vision ENT ENT: Positive for hearing loss; No dizziness/vertigo, balance problems or difficulty swallowing Resp Respiratory: No cough Cardio Cardiology: No chest pain at rest, chest pain with exertion or leg pain with exertion Gastro GI: Positive for bloating, change in bowel habits, heartburn, excessive flatus and Blood in stool; No abdominal pain, belching, change in stool character, coffee ground emesis, constipation, cramping, diarrhea, difficulty swallowing, feeling full early, incontinent of stools, Vomiting blood/hematemesis, loose stools, Black,tarry stools, nausea/dyspepsia, pain with swallowing, vomiting or other Genitourinary Male: No difficulty urinating Musc Musculoskeletal: Positive for numbness, tingling, Arthritis and restless legs; No abnormal gait, joint pain or leg pain with exertion Skin Skin: No yellowing of the eye or itchy eyes Neuro Neurology: Positive for numbness, tingling and restless legs; No abnormal gait Psych Psychiatric: No anxiety and No depression Endo Endocrine: Positive for weight change; No fatigue Aller/Imm Allergy/Immunologic: No food intolerance or itchy eyes Andrew/Lymp Hematologic/Lymphatic: Positive for easy bleeding and easy bruising Exam Const General: cooperative, healthy appearing, comfortable and no acute distress Nutritional Appearance: overweight Orientation: alert HENMT Head: normal to inspection Ears: hearing grossly normal bilaterally Nose: external nose normal Face and sinus: normal facial exam and face symmetric Mouth: oral mucosae normal Eyes General: appearance normal, both eyes and all related structures Sclera: sclerae normal Neck Neck: normal visual inspection and full ROM Neck mass: No Thyroid: thyroid normal Chest Chest palpation & inspection: normal inspection of the chest Resp Effort & Inspection: normal respiratory effort, able to speak in complete sentences and symmetric chest movement GI Inspection: normal to inspection Auscultation: normal bowel sounds Percussion: normal to percussion Skin General: no rashes or lesions noted Neuro General: patient alert, patient awake and patient oriented x3 Cognition: normal cognition Speech: speech normal Gait: normal gait Extrem General: full ROM Psych Appearance: well kempt Mental Status: mental status grossly normal Mood: congruent mood Affect: normal affect Speech and Movement: speech and movement normal Attitude: cooperative Thought Process: normal Assessment and Plan Assessment and Plan (1) History of neuroendocrine cancer: Status: Chronic (2) Bleeding per rectum: Status: Acute Plan: MISTI MORAN, is a 79 M who presents to the office today for OV with complaints of bleeding per rectum. BP was checked in office this morning at 142/79, mucosa pink and moist, +2 pulses. Differential diagnoses include: peptic ulcer, diverticular disease, colitis,anal fissure, angiodysplasia. * order blood for cell count, iron, gastrin level * order stool for occult * Abd CTa w/wo contrast to look for active bleed * EGD to inspect gastric anastomosis and tissue * colonoscopy to inspect gastric mucosa * pantoprazole 40mg PO daily * call with results Orders: Orders CBC W/Diff, Automated Today K62.5 - Hemorrhage of anus and rectum, Z85.89 - Personal history of malignant neoplasm of other organs and systems Ferritin Today D64.9 - Anemia, unspecified, K62.5 - Hemorrhage of anus and re ctum, Z85.89 - Personal history of malignant neoplasm of other organs and systems Haptoglobin Today K62.5 - Hemorrhage of anus and rectum, Z85.89 - Personal history of malignant neoplasm of other organs and systems JORGE ALBERTO + Protein Elect, Serum Today K62.5 - Hemorrhage of anus and rectum, Z85.89 - Personal history of malignant neoplasm of other organs and systems Iron Binding Capacity,Total Today D64.9 - Anemia, unspecified, K62.5 - Hemorrhage of anus and rectum, Z85.89 - Personal history of malignant neoplasm of other organs and systems LDH Today K62.5 - Hemorrhage of anus and rectum, Z85.89 - Personal history of malignant neoplasm of other organs and systems Retic Panel Count Today K62.5 - Hemorrhage of anus and rectum, Z85.89 - Personal history of malignant neoplasm of other organs and systems Iron Today D64.9 - Anemia, unspecified, K62.5 - Hemorrhage of anus and rectum, Z85.89 - Personal history of malignant neoplasm of other organs and systems Celiac Disease Profile Today K62.5 - Hemorrhage of anus and rectum, Z85.89 - Personal history of malignant neoplasm of other organs and systems Stool Lactoferrin/WBC Today K58.9 - Irritable bowel syndrome, unspecified, K62.5 - Hemorrhage of anus and rectum, Z85.89 - Personal history of malignant neoplasm of other organs and systems Calprotectin, Stool Today K62.5 - Hemorrhage of anus and rectum, Z85.89 - Personal history of malignant neoplasm of other organs and systems Pancreatic Elastase, Fecal Today K62.5 - Hemorrhage of anus and rectum, Z85.89 - Personal history of malignant neoplasm of other organs and systems Stool Occult Blood iFOB Today K62.5 - Hemorrhage of anus and rectum, Z85.89 - Personal history of malignant neoplasm of other organs and systems Fecal Fat, Qualitative Today K62.5 - Hemorrhage of anus and rectum, Z85.89 - Personal history of malignant neoplasm of other organs and systems Gastrin, Serum Today Z85.89 - Personal history of malignant neoplasm of other organs and systems CTA Abd/Pelvis W/WO Contrast Today K62.5 - Hemorrhage of anus and rectum, Z85.89 - Personal history of malignant neoplasm of other organs and systems I have examined the patient and the H&P has been reviewed. There are no clinical changes since date of exam.
--- NOTE | 2024-07-27 11:19 | PRE.ANES_ITS ---
ASA Classification* ASA Classification ASA Classification: 3 Assessment & Plan Anesthesia* Anesthesia Assessment Anesthesia Assessment: Discussed sedation and/or anesthesia options, risks, benefits, and alternatives with patient/parents/legal guardian/POA. Questions invited. The patient/parents/legal guardian/POA seems to understand and agrees to proceed with anesthesia plan. Reviewed the physical assessment, medical history, allergy history and patient home medications list prior to surgery/procedure/anesthetic and documented any changes. Performed airway and anesthesia risk assessments. Anesthesia Type Anesthesia Type: MAC History Source History Obtained from:: Patient and Chart Anesthesia Focused Assessment* Temperature: 97 F Pulse Rate: 65 Blood Pressure: 115/79 Respiratory Rate: 16 Pulse Ox: 95 Oxygen Delivery Method: Room Air Airway Assessment Mouth opens: >3 cm Mallampati Score: II Teeth Condition: Caps/Crowns (Patient has multiple Crowns. They Are All Tight.) Neck Range of motion (ROM): Limited ROM (Decreased extension) Focused Labs Anesthesia Preop lab: CBC WBC 5.8 K/mm3 (4.4-11.0) 06/30/24 09:43 RBC 5.01 M/mm3 (4.6-6.2) 06/30/24 09:43 Hgb 14.3 g/dL (13.0-16.5) 06/30/24 09:43 Hct 43.7 % (40-54) 06/30/24 09:43 Plt Count 209 K/mm3 (150-450) 06/30/24 09:43 CHEMISTRY COAG Pre-Assessment Diagnosis/Proposed Procedure Planned Operative Procedure(s): COLONOSCOPY, EGD Anesthesia History Anesthesia History - inspector outside steam distribution: Anesthesia History - inspector outside steam distribution Hx Hospitalization No 07/23/24 14:12 Any Problems With Anesthesia No 07/23/24 14:12 Cholinesterase deficiency No 07/23/24 14:12 You/Your Family Experience No 07/23/24 14:12 fever (hyperthermia) with Relationship Recent Exposure to Contagious No 07/27/24 11:05 Disease Does patient have nerve No 07/23/24 14:12 stimulator Patient instructed to have device shut off --Does patient have Pacemaker No 07/27/24 11:05 or ICD? When Was Last Pacemaker Check QUESTION #4 FULL TEXT: You/Your Family Experience fever (hyperthermia) with Anesthesia Any additional information?: Yes Any Problems With Anesthesia: Yes (Decreased blood pressure on his last endoscopy treated with ephedrine.) Cholinesterase deficiency: No You/your family experience fever (hyperthermia) with anesthesia: No Last Oral Intake Last Oral intake: Last Oral Intake NPO since 07:00 07/27/24 11:05 Meds taken in AM with sips of water? Meds patient instructed to take am of surgery Any additional information?: Yes NPO since: 07:30 (Patient finished prep at 7:30 AM.) PONV PONV - inspector outside steam distribution: PONV - inspector outside steam distribution Female No 07/23/24 14:12 HX of Motion Sickness No 07/23/24 14:12 HX of N/V After Surgery No 07/23/24 14:12 Non-Smoker Yes 07/23/24 14:12 Duration of Surgery greater No 07/23/24 14:12 than 60 minutes Number of Risk Factors 1 07/23/24 14:12 PONV Score Low Risk 07/23/24 14:12 Height & Weight Height & Weight: Anesthesia: Height & Weight Height 6 ft 07/27/24 11:05 Weight: 117.934 kg 07/27/24 11:05 Body Mass Index (BMI) 35.2 07/27/24 11:05 Respiratory Assessment Respiratory Assessment - inspector outside steam distribution: Respiratory Tract Infection Hx - inspector outside steam distribution Hx Respiratory Tract Infection No 07/23/24 14:12 STOP Sleep Apnea STOP Sleep Apnea - inspector outside steam distribution: STOP Sleep Apnea - inspector outside steam distribution Hx Hypertension Yes: CONTROLLED WITH MEDS 07/23/24 14:12 Hx Sleep Apnea No 07/23/24 14:12 CPAP BIPAP Do you snore loudly (louder No 07/23/24 14:12 than talking or can be heard Do you often feel tired/ No 07/23/24 14:12 fatigued/ sleepy during daytime? Has anyone observed you stop No 07/23/24 14:12 breathing during sleep? STOP Results Negative 07/23/24 14:12 QUESTION #5 FULL TEXT : Do you snore loudly (louder than talking or can be heard through closed doors)? 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 Specify any problems Hx of Preganancy in last 3 N/A 07/23/24 14:12 Months Nurse Filling Out Transfusion [id number] 07/23/24 14:12 & Questions: Date: 07/23/24 07/23/24 14:12 Time: 14:14 07/23/24 14:12 Patient unable to answer at this time (ie. confused, unrespo /Reproduction History /Reproductive History - inspector outside steam distribution: /Reproductive Hx- inspector outside steam distribution Hx Now Gestational Age (in weeks): EDC: Hx Hx Para Hx Section SAB PFSH Medical History (Updated 07/23/24 @ 14:17 by Alexis Barton) Prostate disease Gastric reflux Wears hearing aid Loss of hearing Cancer High cholesterol Non-smoker Chest pain Erectile dysfunction Back pain Eczema Risk for falls BPH (benign prostatic hyperplasia) Irritable bowel syndrome Type 2 diabetes mellitus Hyperlipidemia Hypercholesterolemia Positive colorectal cancer screening using Cologuard test Asthma Hypertension History of back problems Home Medications ?Medication ?Instructions ?Recorded ?Last Taken ?Type atorvastatin 20 mg tablet 20 mg PO DAILY 02/25/19 08/11/23 History benazepril 20 mg tablet 20 mg PO DAILY 02/25/19 08/12/23 History albuterol sulfate 90 mcg/actuation 2 puff inhalation Q6H PRN 02/28/23 Unknown History aerosol inhaler shortness of breath or wheezing saw palmetto 160 mg capsule 160 mg PO DAILY 02/28/23 08/11/23 History tadalafil 5 mg tablet (Cialis) 5 mg PO DAILY 02/28/23 Unknown History antiarthritic combination no.2 900 900 mg PO DAILY 08/08/23 08/11/23 History mg tablet (glucosamine-chondroitin) metoprolol tartrate 50 mg tablet 25 mg PO DAILY 08/12/23 07/26/24 23:45 History (Lopressor) colestipol 1 gram tablet 1 g PO DAILY #30 tabs 10/15/23 Unknown Rx fluticasone propionate 220 1 inh inhalation BID 07/23/24 Unknown History mcg/actuation HFA aerosol inhaler Allergy/AdvReac Type Severity Reaction Status Date / Time No Known Allergies Allergy Verified 07/27/24 11:04 Family History (Updated 02/28/23 @ 15:10 by Kianna Hwang) Mother Breast cancer Diabetes Hypertension Sister Breast cancer Brother Prostate cancer Father CAD (coronary artery disease) Son Hypertension Autoimmune liver disease Other CVA (cerebral vascular accident) Surgical History History of cardiac catheterization History of tonsillectomy and adenoidectomy History of gastric surgery repairbilateral cataract surgery repair broken collar bone Social History (Updated 02/28/23 @ 15:11 by Kianna Hwang) Smoking Status: Never smoker alcohol intake: current alcohol intake frequency: a few times a week Alcohol type: hard liquor details: Drinks a bottle of whiskey per week. Occasional wine caffeine: No what type of physical activity do you participate in: walking frequency: 3-4 times per week Review of Systems (Anesthesia) ROS Narrative System reviewed and no additional complaints, except as documented.
--- NOTE | 2024-07-27 11:45 | EGD_PTH ---
PATHOLOGY RESULTS PATIENT: MISTI MORAN LOC: EN U#:[id number] AGE/SX: 79/M ROOM: RE07/27/[address]: Dr. Shaggy Harvey DO : 1945 BED: DIS: 07/27/2024 SPEC #: [id number] RECD: 07/27/24 13:45 STATUS: ALANIS JAYNE #: [id number] MECHELLE: 07/27/24 11:[address]: Shaggy Harvey DEPT: SURGICAL PATHOLOGY RECD BY: Sabine Rachel ENTERED: 07/27/24 14:09 SP TYPE: EGD BIOPSY OT DR: MD Keiko Hu, TECHNOLOGY EDUCATION INSTRUCTOR-C Tissues: Duodenum, NOS Esophagus, NOS COLON BIOPSY Procedures: Special Stain Group I Surgery Specimen Level IV Alcian Blue/PAS (control) HEADER OPERATION: Colonoscopy with polypectomy, EGD with biopsy PRE-OP DIAGNOSIS: History of neuroendocrine cancer, bleeding per rectum TISSUE SUBMITTED: A- Duodenum biopsy, B- Distal esophagus biopsy, C- Splenic flexure polyp MICROSCOPIC DIAGNOSIS A. Duodenum, biopsy: Fragments of duodenal mucosa with chronic inflammation and gastric metaplasia. B. Distal esophagus, biopsy: Fragments of gastric mucosa with moderate chronic inflammation. Intestinal metaplasia (goblet cell metaplasia) not identified. See comment. C. Splenic flexure polyp, polypectomy: Fragments of hyperplastic polyp. Fragments of fecal material. See comment. 07/28/2024 COMMENT B. Alcian blue/PAS stain with matched control is used in the evaluation of the specimen. C. The specimen predominantly consists of fecal material. 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 MICROSCOPIC DESCRIPTION Slides are reviewed. GROSS DESCRIPTION A. Received in fixative is one container labeled with the patient's name and designated Duodenum biopsy. The specimen consists of multiple irregular fragments of light avery soft tissue that in aggregate measure 1.5 x 0.3 x 0.1 cm. The specimen is totally submitted in one cassette. B. Received in fixative is one container labeled with the patient's name and designated Distal esophagus biopsy. The specimen consists of two irregular fragments of light avery soft tissue that in aggregate measure 0.8 x 0.4 x 0.1 cm. The specimen is totally submitted in one cassette. C. Received in fixative is one container labeled with the patient's name and designated Splenic flexure polyp. The specimen consists of multiple irregular fragments of light avery soft tissue mixed with fecal material that in aggregate measure 1.5 x 0.5 x 0.1 cm. The specimen is totally submitted in one cassette. SJ.mr 07/27/2024 TC:3 CPT:[id number]
--- NOTE | 2024-07-27 12:25 | OP.CCLET_ITS ---
07/27/2024 Reji Waite Re : Upper GI endoscopy procedure for Kirill Erickson Ravindra This procedure was performed on Saturday, July 27, 2024. My impressions and recommendations are as follows: Impressions : - Z-line irregular, 40 cm from the incisors. Biopsied. - Small hiatal hernia. - Non-bleeding duodenal ulcers with no stigmata of bleeding. Biopsied. Recommendations : - Discharge patient to home. - Resume previous diet. - Continue present medications. - Await pathology results. My findings are described in the full procedure note, which is enclosed. If I can be of further assistance, please feel free to contact me at . Sincerely, Shaggy Harvey, 07/27/2024 12:24:38 PM This report has been signed electronically.
--- NOTE | 2024-07-27 12:25 | OP.EGD_ITS ---
Patient Name: Kirill Grider Procedure Date: 07/27/2024 11:48 AM Date of : 1945 Age: 79 Procedure: Upper GI endoscopy Indications: Epigastric abdominal pain, Hematochezia Providers: Shaggy Harvey DO Referring MD: Reji Waite Medicines: Monitored Anesthesia Care Patient Profile: This is an 79 year old male. Refer to note in patient chart for documentation of history and physical. Patient has symptoms of acute epigastric abdominal pain. Complications: No immediate complications. Procedure: Pre-Anesthesia Assessment: - Prior to the procedure, a History and Physical was performed, and patient medications and allergies were reviewed. The patient is competent. The risks and benefits of the procedure and the sedation options and risks were discussed with the patient. All questions were answered and informed consent was obtained. Patient identification and proposed procedure were verified by the physician in the pre-procedure area. Mental Status Examination: alert and oriented. Airway Examination: normal oropharyngeal airway and neck mobility. Respiratory Examination: clear to auscultation. CV Examination: normal. Prophylactic Antibiotics: The patient does not require prophylactic antibiotics. Prior Anticoagulants: The patient has taken no anticoagulant or antiplatelet agents except for NSAID medication. ASA Grade Assessment: II - A patient with mild systemic disease. After reviewing the risks and benefits, the patient was deemed in satisfactory condition to undergo the procedure. The anesthesia plan was to use monitored anesthesia care (MAC). Immediately prior to administration of medications, the patient was re-assessed for adequacy to receive sedatives. The heart rate, respiratory rate, oxygen saturations, blood pressure, adequacy of pulmonary ventilation, and response to care were monitored throughout the procedure. The physical status of the patient was re-assessed after the procedure. After obtaining informed consent, the endoscope was passed under direct vision. Throughout the procedure, the patient's blood pressure, pulse, and oxygen saturations were monitored continuously. The was introduced through the mouth, and advanced to the second part of duodenum. The upper GI endoscopy was accomplished without difficulty. The patient tolerated the procedure well. Scope In: 11:58:27 AM Scope Out: 12:02:58 PM Total Procedure Duration Time 0 hours 4 minutes 31 seconds Findings: The Z-line was irregular and was found 40 cm from the incisors. Biopsies were taken with a cold forceps for histology. Verification of patient identification for the specimen was done. Estimated blood loss was minimal. A small hiatal hernia was present. No other significant abnormalities were identified in a careful examination of the stomach. Many non-bleeding cratered duodenal ulcers with no stigmata of bleeding were found in the duodenal bulb and in the first portion of the duodenum. The largest lesion was 6 mm in largest dimension. Biopsies were taken with a cold forceps for histology. Verification of patient identification for the specimen was done. Estimated blood loss was minimal. Impression: - Z-line irregular, 40 cm from the incisors. Biopsied. - Small hiatal hernia. - Non-bleeding duodenal ulcers with no stigmata of bleeding. Biopsied. Recommendation: - Discharge patient to home. - Resume previous diet. - Continue present medications. - Await pathology results. Procedure Code(s): --- Professional --- 85918, Esophagogastroduodenoscopy, flexible, transoral; with biopsy, single or multiple CPT copyright 2021 [employer]. All rights reserved. The codes documented in this report are preliminary and upon detail maker and fitter review may be revised to meet current compliance requirements. Shaggy Harvey DO 07/27/2024 12:24:38 PM This report has been signed electronically. Number of Addenda: 0 Note Initiated On: 07/27/2024 11:48 AM
--- NOTE | 2024-07-27 12:28 | OP.CCLET_ITS ---
07/27/2024 Reji Waite Re : Colonoscopy procedure for Kirill Grider Georgina Waite This procedure was performed on Saturday, July 27, 2024. My impressions and recommendations are as follows: Impressions : - Hemorrhoids found on perianal exam. - Non-bleeding external and internal hemorrhoids. - One 3 mm polyp at the splenic flexure, removed with a hot snare. Resected and retrieved. 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 - Diverticulosis in the recto-sigmoid colon, in the sigmoid colon, in the descending colon, at the splenic flexure, in the transverse colon, at the hepatic flexure and in the ascending colon. Recommendations : - Discharge patient to home. - Resume previous diet. - Continue present medications. - Await pathology results. - Repeat colonoscopy in 3 years. My findings are described in the full procedure note, which is enclosed. If I can be of further assistance, please feel free to contact me at . Sincerely, Shaggy Harvey, 07/27/2024 12:27:59 PM This report has been signed electronically.
--- NOTE | 2024-07-27 12:28 | OP.COLON_ITS ---
Patient Name: Kirill Grider Procedure Date: 07/27/2024 12:03 PM Date of : 1945 Age: 79 Procedure: Colonoscopy Indications: Hematochezia Providers: Shaggy Harvey DO Referring MD: Reji Waite Medicines: Monitored Anesthesia Care Patient Profile: This is an 79 year old male. Refer to note in patient chart for documentation of history and physical. Patient has symptoms of acute epigastric abdominal pain. Last Colonoscopy: 1 year ago. Complications: No immediate complications. Procedure: Pre-Anesthesia Assessment: - Prior to the procedure, a History and Physical was performed, and patient medications and allergies were reviewed. The patient is competent. The risks and benefits of the procedure and the sedation options and risks were discussed with the patient. All questions were answered and informed consent was obtained. Patient identification and proposed procedure were verified by the physician in the pre-procedure area. Mental Status Examination: alert and oriented. Airway Examination: normal oropharyngeal airway and neck mobility. Respiratory Examination: clear to auscultation. CV Examination: normal. Prophylactic Antibiotics: The patient does not require prophylactic antibiotics. Prior Anticoagulants: The patient has taken no anticoagulant or antiplatelet agents except for NSAID medication. ASA Grade Assessment: II - A patient with mild systemic disease. After reviewing the risks and benefits, the patient was deemed in satisfactory condition to undergo the procedure. The anesthesia plan was to use monitored anesthesia care (MAC). Immediately prior to administration of medications, the patient was re-assessed for adequacy to receive sedatives. The heart rate, respiratory rate, oxygen saturations, blood pressure, adequacy of pulmonary ventilation, and response to care were monitored throughout the procedure. The physical status of the patient was re-assessed after the procedure. After I obtained informed consent, the scope was passed under direct vision. Throughout the procedure, the patient's blood pressure, pulse, and oxygen saturations were monitored continuously. The was introduced through the anus and advanced to the terminal ileum. The colonoscopy was performed without difficulty. The patient tolerated the procedure well. The quality of the bowel preparation was adequate. The terminal ileum, ileocecal valve, appendiceal orifice, and rectum were photographed. Scope In: 12:04:11 PM Scope Withdrawal Time 0 hours 9 minutes 40 seconds Scope Out: 12:19:10 PM Total Procedure Duration Time 0 hours 14 minutes 59 seconds Findings: Hemorrhoids were found on perianal exam. Non-bleeding external and internal hemorrhoids were found during retroflexion. The hemorrhoids were Grade II (internal hemorrhoids that prolapse but reduce spontaneously). A 3 mm polyp was found in the splenic flexure. The polyp was sessile. The polyp was removed with a hot snare. Resection and retrieval were complete. There was a large lipoma, in the cecum and at the ileocecal valve. Multiple small and large-mouthed diverticula were found in the recto-sigmoid colon, sigmoid colon, descending colon, splenic flexure, transverse colon, hepatic flexure and ascending colon. Impression: - Hemorrhoids found on perianal exam. - Non-bleeding external and internal hemorrhoids. - One 3 mm polyp at the splenic flexure, removed with a hot snare. Resected and retrieved. 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 - Diverticulosis in the recto-sigmoid colon, in the sigmoid colon, in the descending colon, at the splenic flexure, in the transverse colon, at the hepatic flexure and in the ascending colon. Recommendation: - Discharge patient to home. - Resume previous diet. - Continue present medications. - Await pathology results. - Repeat colonoscopy in 3 years. Procedure Code(s): --- Professional --- 59389, Colonoscopy, flexible; with removal of tumor(s), polyp(s), or other lesion(s) by snare technique CPT copyright 2021 [employer]. All rights reserved. The codes documented in this report are preliminary and upon dixonac operator review may be revised to meet current compliance requirements. Shaggy Harvey DO 07/27/2024 12:27:59 PM This report has been signed electronically. Number of Addenda: 0 Note Initiated On: 07/27/2024 12:03 PM
--- NOTE | 2024-07-27 12:33 | PCM.POST.ANE ---
Anesthesia: Postop Eval I Current Vital Signs Temperature: 97 F Pulse Rate: 65 Blood Pressure: 88/58 Respiratory Rate: 16 Pulse Ox: 95 Oxygen Delivery Method: Room Air Assessment Airway patent: Yes Spontaneous unlabored respirations: Yes Mental status: Asleep nausea: No Vomiting: No Anesthesia Complication: No Fluid Hydration Crystalloid volume administer (ml): 60 Total IV fluid infused: 60 Progress Note Anesthesia document: Postop Eval 1 completed: Yes
--- NOTE | 2024-07-27 15:54 | PCM.POSTANE2 ---
Anesthesia Postop Eval I Sum Postop Eval Completion status Anesthesia document: Postop Eval 1 completed: Yes Anesthesia Postop Eval I Summary Anesthesia Postop Eval I Summary: Anesthesia Postop Eval I: Assessment Summary Airway patent Yes 07/27/24 12:33 [email or web address] Spontaneous unlabored Yes 07/27/24 12:33 [email or web address] respirations Mental status Asleep 07/27/24 12:33 [email or web address] nausea No 07/27/24 12:33 [email or web address] Vomiting No 07/27/24 12:33 [email or web address] Anesthesia Postop Eval I: Fluid Summary Crystalloid volume administer 60 07/27/24 12:33 [email or web address] (ml) Colloids volume administered ( ml) Blood Product volume administered (ml) Total IV fluid infused 60 07/27/24 12:33 [email or web address] Anesthesia Postop Eval I: Summary Notes Anesthesia Complication No 07/27/24 12:33 [email or web address] Anesthesia Complication Comment: Post-operative progress note Anesthesia: Postop Eval II Evaluation Mental status: Awake and Calm Pain Level: 0 nausea: No Vomiting: No Complications Anesthesia Complication: No
== END 2024-07-27 13:17 | disposition home or self-care (01) ==
LOC: EN 10:42 → AC 10:47
PROVIDERS: PCP Family Medicine; Referring Provider Family Medicine; Visit Provider Internal Medicine Gastroenterology
PROC: 0DJD8ZZ Inspection of Lower Intestinal Tract, Via Natural or Artificial Opening Endoscopic (ICD-10-PCS; CPT 45378; principal; 2024-07-27 11:40)
DX: K62.5 Hemorrhage of anus and rectum (principal); K44.9 Diaphragmatic hernia without obstruction or gangrene; K57.30 Diverticulosis of large intestine without perforation or abscess without bleeding; K64.9 Unspecified hemorrhoids; K26.9 Duodenal ulcer, unspecified as acute or chronic, without hemorrhage or perforation; Z85.89 Personal history of malignant neoplasm of other organs and systems; K58.9 Irritable bowel syndrome, unspecified; D64.9 Anemia, unspecified; D12.0 Benign neoplasm of cecum; K63.5 Polyp of colon
CPT/HCPCS: 45385; 43239; 82274; 82653; 82705; 83630; 83993; 88305; 88312; A4216; J2405

== ENCOUNTER 2025-01-19 17:10 | Observation (INO) | payer MEDICARE, SELFPAY ==
[2025-01-19] VITALS (9 sets, daily range): BP systolic 133–184; BP diastolic 77–86; PULSE 42–73; RESP 14–21; TEMP 36.1–36.6; O2SAT 95–98; BMI 35.6; BMI 35.2
--- NOTE | 2025-01-19 17:40 | CT_ITS ---
PROCEDURE: STROKE CTA HEAD AND NECK W/CON 01/19/2025 REASON FOR EXAM: NEURO DEFICIT, ACUTE, STROKE SUSPECTED TECHNIQUE: CTA imaging of the head and neck from the aortic arch to the skull vertex with out constrast and with intravenous contrast. Coronal and Sagittal reconstruction series were provided. 3D post processing with reformations, Maximum intensity projection (MIPs) Volume rendering and Shaded surface rendering was provided. One or more dose reduction techniques were used (e.g., Automated exposure control, adjustment of the mA and/or kV according to patient size, use of iterative reconstruction technique). FINDINGS: Aortic Arch: Normal size and branching pattern. No significant atherosclerotic plaque. Brachiocephalic and Subclavians: Unremarkable RIGHT Carotid: Right CCA: Unremarkable. Right ICA: Moderate calcified and soft plaque. Maximum stenosis (NASCET): 40 % Right ECA: Unremarkable. LEFT Carotid: Left CCA: Unremarkable. Left ICA: Mild calcified and soft plaque. Maximum stenosis (NASCET): 20 % Left ECA: Unremarkable. Vertebrals: Severely hypoplastic right vertebral artery. Widely patent left vertebral artery. Anatomy: [place] anatomy is normal. Aneurysm or avm: No intracranial aneurysms or large vascular malformations are identified. Anterior cerebral arteries: Unremarkable: Middle cerebral arteries: Unremarkable. Basilar artery: Unremarkable. Posterior cerebral arteries: Unremarkable. Other major branches of the posterior circulation: Unremarkable. Major venous structures: Unremarkable. Other findings: Neck: No lymphadenopathy. Lungs: Lung apices are clear. Bones: Bones are unremarkable. CT/STROKE CTA Head AND Neck W/Con IMPRESSION: No large vessel occlusion. Mild (40%) right carotid stenosis. Mild (20%) left carotid stenosis. Patent vertebral arteries bilaterally. 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 Reading Location: [id number]
--- NOTE | 2025-01-19 17:40 | CT_ITS ---
PROCEDURE: STROKE BRAIN/HEAD WITHOUT CONT 01/19/2025 REASON FOR EXAM: NEURO DEFICIT, ACUTE, STROKE SUSPECTED TECHNIQUE: Head CT without intravenous contrast. Coronal and Sagittal reconstruction series were provided. One or more dose reduction techniques were used (e.g., Automated exposure control, adjustment of the mA and/or kV according to patient size, use of iterative reconstruction technique. COMPARISON: None FINDINGS: No evidence of acute intracranial hemorrhage, midline shift or mass effect. No definite CT evidence of acute territorial cortical infarction. No hydrocephalus. Cerebral volume is age-appropriate. No depressed calvarial fracture. Minimal left maxillary sinus mucosal thickening. Mastoid air cells are clear. CT/STROKE Brain/Head without Cont IMPRESSION: No acute intracranial abnormality. Reading Location: [facility]
--- NOTE | 2025-01-19 17:48 | EX.ED.VIS.EY ---
HPI History of Present Illness Chief Complaint: Eye Problem Detail of Chief Complaint: Double vision. Informant: patient Onset/Context/Timing Location: Bilateral Eyes Timing: Continuous Current Severity: Moderate Maximum Severity: Moderate Narrative Narrative: 79-year-old male history of hypertension, asthma and prior stomach cancer with a partial stomach resection. No recurrence or spread. Since Saturday evening he has had double vision if he has both eyes open. With either eye closed his vision is back to normal. He saw the eye doctor today was concerned for 3rd nerve palsy and reasons for that such as a stroke or a intracranial aneurysm and sent him in the ER for further evaluation. Patient states he is also had recent problems with his balance. Mild headache. No weakness in his arms or legs. Prior similar symptoms: No Recent Illness/Hospitalization: No PFSH PFSH Medical History Prostate disease Gastric reflux Wears hearing aid Loss of hearing Cancer High cholesterol Non-smoker Chest pain Erectile dysfunction Back pain Eczema Risk for falls BPH (benign prostatic hyperplasia) Irritable bowel syndrome Type 2 diabetes mellitus Hyperlipidemia Hypercholesterolemia Positive colorectal cancer screening using Cologuard test Asthma Hypertension History of back problems Home Medications ?Medication ?Instructions ?Recorded ?Last Taken ?Type atorvastatin 20 mg tablet 20 mg PO DAILY 02/25/19 01/18/25 History benazepril 20 mg tablet 20 mg PO DAILY 02/25/19 01/18/25 History albuterol sulfate 90 mcg/actuation 2 puff inhalation Q6H PRN 02/28/23 Unknown History aerosol inhaler shortness of breath or wheezing saw palmetto 160 mg capsule 160 mg PO DAILY 02/28/23 01/19/25 History tadalafil 5 mg tablet (Cialis) 5 mg PO DAILY 02/28/23 01/19/25 History antiarthritic combination no.2 900 900 mg PO DAILY 08/08/23 01/19/25 History mg tablet (glucosamine-chondroitin) aspirin 325 mg tablet 650 mg PO QHS PRN headache 01/19/25 01/18/25 History auramrt-wxqjbdipfwxyg-wqflfrer 250 1 tab PO DAILY PRN headache 01/19/25 01/19/25 History mg-250 mg-65 mg tablet (Excedrin Migraine) budesonide 160 mcg-glycopyr 9 2 inh inhalation DAILY 01/19/25 01/18/25 History mcg-formot 4.8 mcg/actuation HFA inhaler (Breztri Aerosphere) Allergy/AdvReac Type Severity Reaction Status Date / Time No Known Allergies Allergy Verified 01/19/25 17:10 Family History Mother Breast cancer Diabetes Hypertension Sister Breast cancer Brother Prostate cancer Father CAD (coronary artery disease) Son Hypertension Autoimmune liver disease Other CVA (cerebral vascular accident) Surgical History History of cardiac catheterization History of tonsillectomy and adenoidectomy History of gastric surgery repairbilateral cataract surgery repair broken collar bone Social History household members: spouse housing: house Smoking Status: Never smoker alcohol intake: current alcohol intake frequency: a few times a week Alcohol type: hard liquor details: Drinks a bottle of whiskey per week. Occasional wine caffeine: No what type of physical activity do you participate in: walking frequency: 3-4 times per week ROS ROS ED ROS Narrative Headache. Double vision. Balance problems. Constitutional Constitutional ED: Denies chills or fever(s) Eyes Eyes: Reports change in vision and diplopia; Denies blurry vision ENT ENT ED: Denies ear pain Cardiovascular Cardiovascular: Denies chest pain Respiratory/Chest Respiratory/Chest: Denies cough or dyspnea Gastrointestinal Gastrointestinal: Denies abdominal pain Genitourinary Genitourinary ED: Denies dysuria or hematuria Musculoskeletal Musculoskeletal: Denies arthralgias or back pain Integumentary Denies abscess or Abrasions Neurologic Neurologic: Reports headache(s) Psychiatric Psychiatric: Denies anxiety or depression Endocrine Endocrinology: Denies polydipsia or polyphagia Hematologic/Lymphatic Hematologic/Lymphatic: Denies easy bleeding, easy bruising or lymphadenopathy Allergic/Immunologic Allergic/Immunologic ED: Denies mouth swelling, tongue swelling or urticaria EXAM Physical Exam Narrative Exam Narrative: Well-appearing 79-year-old male sitting upright in a chair. seated beside him.. Vital signs stable afebrile. H EENT exam pupils round reactive light. Extra motions are intact. He can open and close both upper and lower lids without any difficulty. There is no ptosis. No facial droop. Normal speech. No trauma. Lungs clear to auscultation bilaterally. Bradycardia rate of 58 possibly irregular in A-fib also.. Chest wall and ribs nontender. Abdomen soft nontender. Moving all 4 extremities. 5 out of 5 electronic scale tester strength. Dorsi plantarflexion intact. Fingertip to nose within normal limits. No drift with either upper or lower extremities. His NIH score is 0 I did not ambulate him. He is answering questions and following commands. He has normal speech. Const Vital Signs: 01/19/25 17:10 Temperature 96.9 F L Temperature Source Temporal Pulse Rate 58 L Respiratory Rate 16 Blood Pressure 150/77 H Blood Pressure Mean 101 Pulse Ox 96 Oxygen Delivery Method Room Air Positive well nourished and well developed; Negative for cachectic, contractures or unkempt General Appearance ED: well developed and NAD; Negative for unkempt, cachectic or contractures Nutritional Appearance: Negative for cachectic HEENT atraumatic; Negative for trauma or tenderness Neck no lymphadenopathy, supple and no JVD Resp normal respiratory effort, no retractions, no use of accessory muscles and clear to auscultation bilaterally Cardio S1 normal heart sound, S2 normal heart sound and no murmurs; Negative for regular rate or regular rhythm Cardio Narrative: Bradycardia 58. Possibly A-fib. GI non-tender, non-distended and no masses Palpation: soft Back/Spine no CVA tenderness Extremity normal to inspection General Extremety ED: Negative for edema or other findings General Extremity: Negative for edema or other findings Neuro oriented x3, CN's II-XII intact bilaterally, moves all extremities and no sensory deficits noted Neuro Narrative: NIH score 0. Pupils are round reactive light. Extra motions are intact. No ptosis. He is able to open close his eyes. No facial droop. Normal speech. Sensorium / Orientation: alert, oriented to person, oriented to place and oriented to time; Negative for orientation impaired Motor Exam: strength 5/5 throughout; Negative for general weakness or strength abnormal Psych Appearance: Negative for unkempt Attitude: No agitated Mood & Affect: Negative for depressed, anxious or tearful Skin no wounds Lesions: no lesions Rashes: no rashes MDM MDM MDM Narrative Medical decision making narrative: Patient had bilateral double vision but if he closes either eye it resolves. Otherwise his neurologic exam is normal. He may have new onset A-fib. He will undergo stroke workup including a CTA of his head and neck. Currently he is very stable. His initial NIH is 0. History & Record Review Discussion w/independent historian: Patient and Family Additional record(s) reviewed:: Prior inpatient record, Prior outpatient record, Prior ED visit and Prior labs Lab Data Attestation: I reviewed the patient's lab results. Lab results narrative: CBC was unremarkable. White count is 7. H&H 13 and 40. Platelets 223. Electrolytes unremarkable. Gap 10. Normal BUN of 17 creatinine normal. Glucose 118. Troponin 14. CTA of his brain and neck showed chronic mild carotid stenosis bilaterally. No acute process. No bleed or stroke. No aneurysm. Rhythm Strip Rhythm Strip: A-fib Rate: 56 Ectopy: None EKG Initial EKG: Attestation: I personally reviewed and interpreted this EKG as follows: Interpretation: Sinus Bradycardia Comments: Sinus bradycardia. Rate of 42. First-degree AV block with a IA interval 248. No acute signs of VT or ischemia. This is second EKG. Discharge Plan Triage Chief Complaint: Eye Problem ED Provider: Harish Smart Dx/Rx/DC Orders Clinical Impression: Diplopia, Ataxia, Bradycardia, History of hypertension Prescriptions: No Action benazepril 20 mg tablet 20 mg PO DAILY atorvastatin 20 mg tablet 20 mg PO DAILY saw palmetto 160 mg capsule 160 mg PO DAILY Rx Instructions: give with meal/snack tadalafil [Cialis] 5 mg tablet 5 mg PO DAILY albuterol sulfate 90 mcg/actuation HFA aerosol inhaler 2 puff inhalation Q6H PRN (Reason: shortness of breath or wheezing) glucosamine-chondroitin 900 mg tablet 900 mg PO DAILY Breztri Aerosphere 160-9-4.8 mcg/actuation HFA aerosol inhaler 2 inh INHALATION DAILY aspirin 325 mg tablet 650 mg PO QHS PRN (Reason: headache) Excedrin Migraine 250-250-65 mg tablet 1 tab PO DAILY PRN (Reason: headache) Primary Care Provider: Reji Waite Referrals: Reji Waite MD [Primary Care Provider] - Print Language: Macedonian Disposition Disposition: Acute Care Hospital [facility]
[2025-01-19 18:15] LABS: Bedside Glucose 112 mg/dL (74-106)
[2025-01-19 18:22] LABS: Absolute Lymphocyte Count 2.02 X10^3/uL (0.83-4.51); Absolute Neutrophil Count 4.5 X10^3/uL (2.0-7.7); Basophil# 0.07 X10^3/uL; Basophil% 0.9 % (0-1); Eosinophil# 0.37 X10^3/uL; Eosinophils% 4.8 % (0-5); Hematocrit 40.6 % (40-54); Hemoglobin 13.6 g/dL (13.0-16.5); Lymphocyte # 2.02 X10^3/ul (0.83-4.51); Lymphocyte % 26.4 % (19-41); Mean Corp Hgb Conc 33.5 g/dL (32-36); Mean Corpuscular Hgb 28.5 pg (27.0-32.0); Mean Corpuscular Volume 84.9 fL (80-94); Mean Platelet Vol. 9.2 fl (6.2-12.0); Monocyte# 0.62 X10^3/uL; Monocyte% 8.1 % (0-10); NRBC Flagged by Analyzer 0 % (0-5); Neutrophil # 4.54 X10^3/uL (2.7-7.7); Neutrophil % 59.5 % (47-70); Platelet Count 223 K/mm3 (150-450); RBC Distribution Width CV 14.6 % (11.6-14.6); RBC Distribution Width SD 45.1 fl (35.1-43.9); Red Blood Count 4.78 M/mm3 (4.6-6.2); White Blood Count 7.6 K/mm3 (4.4-11.0)
[2025-01-19 18:30] LABS: Anion Gap 10 (5-15); BUN 17 mg/dL (4-19); BUN/Creat Ratio 20.2 RATIO (10-20); Calcium,Total 8.9 mg/dL (7.6-11.0); Carbon Dioxide 22.4 mmol/L (21.0-32.0); Chloride 107 mmol/L (98-108); Creatinine, Serum 0.83 mg/dL (0.70-1.20); EST Glomerular Filtration Rate 89 (>60); Estimated Creatinine Clearance 94.66 ml/min (50-250); Glucose 118 mg/dL (70-99); Potassium 4.2 mmol/L (3.3-5.1); Sodium Level 139 mmol/L (133-145); Troponin T High Sensitivity 14 ng/L (<=22)
[2025-01-19 19:13] LABS: Partial Thromboplast Time 28.2 Seconds (24.1-36.2)
[2025-01-19 19:22] LABS: International Normalized Ratio 1.1; Prothrombin Time (Protime)PT. 14.7 SECONDS (11.7-14.9)
[2025-01-19] MEDS: Acetaminophen 500 MG Tablet 1000 MG PO (20:09)
[2025-01-19 20:26] LABS: Troponin T High Sens 2 HR 18 ng/L (<=22)
--- NOTE | 2025-01-19 20:29 | PCM.HP.STD ---
[facility] - General General Date of Admission: 01/19/25 Date of Service: 01/19/25 Chief Complaint: Double Vision. HPI Narrative MISTI GRIDER, is a 79 M with a past medical history of essential hypertension; on benazepril, hyperlipidemia; on atorvastatin, obesity; with BMI of 35.7 this admission, history of borderline diabetes; currently not on treatment, history of asthma; on Breztri BID plus prn albuterol inhaler, history of migraine headaches; on prn Excedrin, BPH; on saw palmetto, ED; on tadalafil, history of stomach cancer; s/p partial gastrectomy, history of IBS, history of LHC, history of bilateral cataract surgery, remote history of Right clavicular fracture; s/p repair and OA; with history of back pain on glucosamine/chondroitin who presents to [facility] ER complaining of double vision. Mr. Grider reports his symptoms began approximately 4 days prior to admission on the evening of Saturday, January 15, 2025 when he noticed he had double vision if both of his eyes were open. He noted that with either eye closed his vision would go back to normal. He was seen by his parboiler earlier today who had concern for 3rd cranial nerve palsy due to possible CVA or intracranial aneurysm so he was sent into the ER for further evaluation and treatment. Patient admits to mild headache but he denies recent problems with his balance, slurred speech or other focal neurologic deficits. There is no report of fever, chills, nausea, vomiting, diarrhea, constipation, abdominal pain, dysuria, hematuria, chest pain, shortness of breath or rash. In the ER he was diagnosed with suspected 3rd cranial nerve palsy causing diplopia and he was then admitted to the PCU under observation status for CVA workup for a stay that is expected to be less than 2 midnights. [facility] Medical History Prostate disease Gastric reflux Wears hearing aid Loss of hearing Cancer High cholesterol Non-smoker Chest pain Erectile dysfunction Back pain Eczema Risk for falls BPH (benign prostatic hyperplasia) Irritable bowel syndrome Type 2 diabetes mellitus Hyperlipidemia Hypercholesterolemia Positive colorectal cancer screening using Cologuard test Asthma Hypertension History of back problems Home Medications ?Medication ?Instructions ?Recorded ?Last Taken ?Type atorvastatin 20 mg tablet 20 mg PO DAILY 02/25/19 01/18/25 History benazepril 20 mg tablet 20 mg PO DAILY 02/25/19 01/18/25 History albuterol sulfate 90 mcg/actuation 2 puff inhalation Q6H PRN 02/28/23 Unknown History aerosol inhaler shortness of breath or wheezing saw palmetto 160 mg capsule 160 mg PO DAILY 02/28/23 01/19/25 History tadalafil 5 mg tablet (Cialis) 5 mg PO DAILY 02/28/23 01/19/25 History antiarthritic combination no.2 900 900 mg PO DAILY 08/08/23 01/19/25 History mg tablet (glucosamine-chondroitin) aspirin 325 mg tablet 650 mg PO QHS PRN headache 01/19/25 01/18/25 History wmjoysk-gvirzwmyuvqny-tujvxrgu 250 1 tab PO DAILY PRN headache 01/19/25 01/19/25 History mg-250 mg-65 mg tablet (Excedrin Migraine) budesonide 160 mcg-glycopyr 9 2 inh inhalation DAILY 01/19/25 01/18/25 History mcg-formot 4.8 mcg/actuation HFA inhaler (Breztri Aerosphere) Allergy/AdvReac Type Severity Reaction Status Date / Time No Known Allergies Allergy Verified 01/19/25 17:10 Family History Mother Breast cancer Diabetes Hypertension Sister Breast cancer Brother Prostate cancer Father CAD (coronary artery disease) Son Hypertension Autoimmune liver disease Other CVA (cerebral vascular accident) Surgical History History of cardiac catheterization History of tonsillectomy and adenoidectomy History of gastric surgery repairbilateral cataract surgery repair broken collar bone Social History household members: spouse housing: house Smoking Status: Never smoker alcohol intake: current alcohol intake frequency: a few times a week Alcohol type: hard liquor details: Drinks a bottle of whiskey per week. Occasional wine caffeine: No what type of physical activity do you participate in: walking frequency: 3-4 times per week ROS ROS Narrative Review of Systems: Constitutional: Patient denies fever or chills. Eyes: Patient admits to double vision that resolves with 1 eye closed. He denies blurry vision or discharge from eyes. ENT: Patient denies runny nose, sore throat or ear pain. Resp: Patient denies shortness of breath or cough. CV: Patient denies chest pain, palpitations, heart racing or lower extremity edema. GI: Patient denies abdominal pain, nausea, vomiting, diarrhea or constipation. : Patient denies dysuria, hematuria or urinary frequency. MSK: Patient denies arthralgias or myalgias. Skin: Patient denies rash, abscess, wounds or jaundice. Psych: Patient denies symptoms of uncontrolled depression or anxiety. Neuro: Patient admits to double vision that resolves when he closes 1 eye in addition to headache but he denies paresthesias or other focal neurologic deficits. Allergy: Patient denies lip swelling, tongue swelling or urticaria. Hematology: Patient denies easy bleeding or easy bruisability. Endocrinology: Patient denies polyuria, polydipsia, polyphagia or heat/cold intolerance. 14 point ROS otherwise negative save for positives noted above in HPI. Vital Signs Vital Signs Vital Signs: 01/19/25 17:10 01/19/25 17:53 01/19/25 18:15 Temperature 96.9 F L Temperature Source Temporal Pulse Rate 58 L 50 L Respiratory Rate 16 14 Blood Pressure 150/77 H 133/86 H Blood Pressure Mean 101 97 Pulse Ox 96 98 95 Oxygen Delivery Method Room Air Room Air 01/19/25 19:00 01/19/25 20:00 01/19/25 20:27 Temperature 98 F Temperature Source Pulse Rate 73 48 L 48 L Respiratory Rate 18 21 H 21 H Blood Pressure 133/79 H 149/79 H 149/79 H Blood Pressure Mean 97 102 102 Pulse Ox 98 98 98 Oxygen Delivery Method Weight Weight: 263 lb Body Mass Index (BMI) 35.6 Physical Exam Const alert, oriented x3, no apparent distress and healthy appearing Constitutional Narrative: Obese. General Appearance: cooperative HEENT normocephalic, head/scalp atraumatic, hearing grossly normal bilaterally and moist oral mucous membranes Eyes PERRL and EOMs intact bilaterally Eyes Narrative: Patient can open and close both upper lips without difficulty with no signs of ptosis, facial droop or slurred speech. Neck no lymphadenopathy, supple and no JVD Resp normal respiratory effort, no retractions, no use of accessory muscles and clear to auscultation bilaterally Cardio regular rate and regular rhythm GI normal to inspection, nondistended, normoactive bowel sounds, soft to palpation, non-tender and non-distended GI Narrative: Obese. Extremity normal to inspection, full ROM and no clubbing, cyanosis or edema Skin Skin Narrative: Patient has evidence of rash, abscess, wounds or jaundice. Neuro oriented x3, CN's II-XII intact bilaterally, moves all extremities and no focal motor deficits Sensorium / Orientation: awake, alert, oriented to person, oriented to place and oriented to time Coordination / Balance: fbyozf-rj-hvrr test normal and hwnj-ty-kejg test normal Speech: speech normal Motor Exam: strength 5/5 throughout Psych affect normal Results Medical Records Data Attestation: I reviewed the patient's medical records Lab / Micro Data Attestation: I reviewed the patient's lab results. 01/19/25 17:59 01/19/25 17:59 Labs: Laboratory Results - last 24 hr 01/19/25 17:57: POC Glucose 112 H 01/19/25 17:59: WBC 7.6, RBC 4.78, Hgb 13.6, Hct 40.6, MCV 84.9, MCH 28.5, MCHC 33.5, RDW Std Deviation 45.1 H, RDW Coeff of Mariella 14.6, Plt Count 223, MPV 9.2, Immature Gran % (Auto) 0.300, Neut % (Auto) 59.5, Lymph % (Auto) 26.4, Kane % (Auto) 8.1, Eos % (Auto) 4.8, Baso % (Auto) 0.9, Absolute Neuts (auto) 4.5, Absolute Lymphs (auto) 2.02, Nucleated RBC % 0, PT 14.7, INR 1.1, APTT 28.2, Sodium 139, Potassium 4.2, Chloride 107, Carbon Dioxide 22.4, Anion Gap 10, BUN 17, Creatinine 0.83, Estim Creat Clear Calc 94.66, Est GFR (MDRD) Non-Af 89, BUN/Creatinine Ratio 20.2 H, Glucose 118 H, Calcium 8.9, Troponin T High Sens 14 01/19/25 19:37: Troponin T Hi Sens 2 Hr 18 Rhythm Strip Rhythm Strip: A-fib Rate: 56 Ectopy: None Imaging Radiology Impression Brain CT 01/19/25 17:40 IMPRESSION: No acute intracranial abnormality. Reading Location: [facility] Head/Neck CTA 01/19/25 17:40 IMPRESSION: No large vessel occlusion. Mild (40%) right carotid stenosis. Mild (20%) left carotid stenosis. Patent vertebral arteries bilaterally. 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 Reading Location: [id number] Assessment & Plan Assessment/Plan (1) Diplopia: (2) Ataxia: (3) History of hypertension: (4) Hyperlipidemia: QUALIFIERS: Hyperlipidemia type: unspecified Qualified Code(s): E78.5 - Hyperlipidemia, unspecified (5) Bradycardia: (6) Obesity (BMI 30-39.9): PLAN: Plan 1. 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 Check MRI of brain to evaluate for CVA. Check echocardiogram to evaluate LVEF. Check carotid Doppler with evidence of carotid stenosis on CT. Continue aspirin and statin as previous. Check lipid profile, TSH, hemoglobin A1c, B12, folate, UDS and KRISTEN to evaluate for potential other pathologic conditions that may be contributing to his symptoms. Finally, we will consult [facility] to see this patient on rounds in the a.m. for further recommendations without appreciated in advance. 2. Essential Hypertension; on benazepril complicating #1 - Hold scheduled antihypertensives until CVA definitively ruled out on MRI to rule out for 'permissive hypertension'. 3. Hyperlipidemia; on atorvastatin compounding #1 & #2 - Resume statin as outlined in #1 and check lipid profile this admission. 4. Chronic bradycardia adding to the medical complexity of #1 - #3 - Stable with a baseline heart rate ~50 bpm with patient otherwise asymptomatic. We will monitor overnight. 5. Obesity; with BMI of 35.7 this admission adding to the burden of disease outlined from #1 - #4 - Weight loss was recommended. Check TSH. This complicates his case and may hamper recovery. 6. History of borderline diabetes; currently not on treatment - Check hemoglobin A1c to confirm status. 7. History of asthma; on Breztri BID plus prn albuterol inhaler - Stable no evidence of acute flare at this time. Maintain current treatment. 8. History of migraine headaches; on prn Excedrin - Continue as needed Excedrin as before. 9. BPH; on saw palmetto - Stable. 10. ED; on as needed tadalafil - Noted. Patient will need to be reevaluated to see if this agent is appropriate for him once the stroke workup is complete. 11. History of stomach cancer; s/p partial gastrectomy - Noted. 12. History of IBS - Stable. 13. History of LHC - Noted. 14. History of bilateral cataract surgery - Noted for the sake of completeness. 15. OA; with history of back pain on glucosamine/chondroitin - Current treatment to continue. 16. Remote history of Right clavicular fracture while playing football in high school; s/p operative repair - Noted for the sake of completeness. 17. DVT prophylaxis - Heparin 5,000U subcu twice daily plus SCDs. Total time: Approximately (but not less than) 85 minutes. Charges/Coding Visit Charges OBSV E&M: 36828 Observ/hosp same date L3
--- NOTE | 2025-01-19 20:50 | CDU_ITS ---
Reason For Study Reason For Study: CVA Rt. Velocities/BP Lt. Velocities/BP Prox CCA 67.4/9.7 cm/sec. Prox CCA 99.2/22.3 cm/sec. Mid CCA 73/17.3 cm/sec. Mid CCA 98.1/17.9 cm/sec. Dist CCA 63.6/14.5 cm/sec. Dist CCA 88.3/13.5 cm/sec. Prox ICA 71.1/15.4 cm/sec. Prox ICA 70.7/15.7 cm/sec. Mid ICA 65.5/21.1 cm/sec. Mid ICA 87.2/30 cm/sec. Dist ICA 79.6/27.7 cm/sec. Dist ICA 65.1/16.9 cm/sec. Rt. ICA/CCA = 1.09. Lt. ICA/CCA = 0.89. Prox ECA 84.4/9.7 cm/sec. Prox ECA 100.3/10.2 cm/sec. Rt. Vert. 37.8/6.4 cm/sec. Lt. Vert. 48.7/16.8 cm/sec. Right Extracranial There is homogeneous, smooth atherosclerotic plaque noted in the right common carotid artery. There is heterogeneous, irregular atherosclerotic plaque noted in the right internal carotid artery. There is homogeneous, smooth atherosclerotic plaque noted in the right external carotid artery. Antegrade flow is noted in the right vertebral artery. Left Extracranial There is intimal thickening but no significant atherosclerotic plaque noted in the left common carotid artery. There is heterogeneous, irregular atherosclerotic plaque noted in the left internal carotid artery. There is intimal thickening but no significant atherosclerotic plaque noted in the left external carotid artery. Antegrade flow is noted in the left vertebral artery. Procedure Carotid Duplex [id number]. This is a Carotid Duplex examination using B-mode, color flow and specral Doppler. Exam performed portable in patient room. VL/Carotid Duplex Ultrasound Interpretation Summary Mild (<50%) stenosis right extracranial internal carotid. Mild (<50%) stenosis left extracranial internal carotid. Patent and antegrade vertebrals bilaterally. Ordering Physician: Toyn Chapman Referring Physician: Reji Waite MD Performed By: Fern Sosa RVT
--- NOTE | 2025-01-19 20:50 | ECHOCS_ITS ---
Reason For Study Reason For Study: TIA/CVA Procedure This was a 2D Doppler, Color Flow transthoracic echocardiogram. The study was technically difficult. Contrast injection was performed. Exam performed portable in patient room. Left Ventricle Normal LV size. Left ventricular systolic function is normal. The left ventricular ejection fraction is 65 %. No regional wall motion abnormalities noted. Right Ventricle Normal RV size. Normal systolic function. Atria Normal left atrium. Mitral Valve Normal mitral valve. Tricuspid Valve Normal tricuspid valve. Aortic Valve Normal aortic valve. Pulmonic Valve Normal pulmonic valve. Great Vessels Normal aortic root. The pulmonary artery is normal size. Inferior vena cava collapse with respiration. Pericardium/Pleural No pericardial effusion. Medication Diluted definity 2ml given slow IV push to enhance endocardial definition. MMode/2D Measurements & Calculations LVIDd: 5.0 cm IVSd: 1.1 cm Ao root diam: 3.4 cm LVIDs: 3.1 cm LVPWd: 0.88 cm FS: 37.1 % LAV(MOD-bp): 58.6 ml LVAd ap4: 40.5 cm2 SV(MOD-sp4): 101.2 ml LAV(MOD-bp) Indexed: 24.6 ml/m2 LVLd ap4: 8.4 cm SI(MOD-sp4): 42.5 ml/m2 LAV(MOD-sp2): 47.5 ml EDV(MOD-sp4): 158.8 ml LAV(MOD-sp4): 53.9 ml EDV(sp4-el): 165.7 ml LVAs ap4: 22.6 cm2 LVLs ap4: 7.4 cm ESV(MOD-sp4): 57.6 ml ESV(sp4-el): 59.1 ml EF(MOD-sp4): 63.8 % EF(sp4-el): 64.3 % SV(sp4-el): 106.7 ml LA A4 area: 20.5 cm2 LA dimension(2D): 4.6 cm RA A4 area: 14.9 cm2 TAPSE: 2.7 cm Time Measurements MV dec time: 0.23 sec Doppler Measurements & Calculations MV E max theron: 84.2 cm/sec Lat Peak E' Theron: 15.0 cm/sec Med Peak E' Theron: 9.9 cm/sec MV A max theron: 83.0 cm/sec E/E' lat: 5.6 E/E' med: 8.5 MV E/A: 1.0 MV V2 max: 109.6 cm/sec MV P1/2t max theron: 94.0 cm/sec Ao V2 max: 132.3 cm/sec MV max P.8 mmHg MV P1/2t: 81.5 msec Ao max P.0 mmHg MV V2 mean: 58.3 cm/sec MV dec slope: 338.2 cm/sec2 Ao V2 mean: 90.2 cm/sec MV mean P.6 mmHg MVA(P1/2t): 2.7 cm2 Ao mean P.8 mmHg MV V2 VTI: 40.5 cm Ao V2 VTI: 32.7 cm AV (velocity ratio): 0.82 LV V1 max: 115.5 cm/sec LV V1 max P.3 mmHg LV V1 mean P.8 mmHg LV V1 mean: 77.0 cm/sec LV V1 VTI: 26.8 cm ECHO/Echo Complete W/ Contrast Interpretation Summary Normal LV size. Left ventricular systolic function is normal. The left ventricular ejection fraction is 65 %. Contrast injection was performed. Ordering Physician: Tony Chapman Performed By: Jimmy Garzon RCS
[2025-01-19 21:34] LABS: Hemoglobin A1c 6.9 % (<=5.6)
[2025-01-19 21:54] LABS: Alcohol, Blood (Medical)-Serum < 10.1 mg/dL (<=10.0)
[2025-01-19] MEDS: Budesonide Respules 0.5 MG/2 ML AMPUL.NEB. INHALATION (22:42)
--- NOTE | 2025-01-19 22:44 | CPS ---
Pt refused duoneb this evening.
[2025-01-19 22:55] LABS: Amphetamine Urine NEGATIVE (<1000 ng/mL); Barbiturate Urine NEGATIVE (< 200 ng/mL); Benzodiazepine Urine NEGATIVE (< 200 ng/mL); Buprenorphine Urine NEGATIVE (< 200 ng/mL); Cocaine Urine NEGATIVE (< 300 ng/mL); Fentanyl, Urine NEGATIVE; Methadone Urine NEGATIVE (< 300 ng/mL); Opiates Urine NEGATIVE (< 300 ng/mL); Oxycodone, Urine NEGATIVE (< 100 ng/mL); PCP Urine NEGATIVE (< 25 ng/mL); THC Urine NEGATIVE (< 50 ng/mL)
[2025-01-19 23:07] LABS: Vitamin B12 761 pg/mL (180-914)
[2025-01-19] MEDS: Atorvastatin Calcium 20 MG Tablet PO (23:23)
[2025-01-19] MEDS: Heparin Injection (Vial) 5,000 UNIT/ML VIAL 5000 UNIT SC (23:23)
[2025-01-19] MEDS: 0.9% Saline Lock 10 ML Syringe IV (23:24)
[2025-01-20] VITALS (12 sets, daily range): BP systolic 127–161; BP diastolic 65–109; PULSE 47–60; RESP 12–18; TEMP 36.4–37; O2SAT 92–96; BMI 35.2
[2025-01-20 06:54] LABS: Free T3 2.2 pg/mL (2.18-3.98)
[2025-01-20] MEDS: Budesonide Respules 0.5 MG/2 ML AMPUL.NEB. INHALATION ×2 (07:49→19:59)
[2025-01-20] MEDS: Heparin Injection (Vial) 5,000 UNIT/ML VIAL 5000 UNIT SC ×2 (08:41→23:30)
[2025-01-20] MEDS: Aspirin 81 MG TAB.CHEW PO (08:41)
--- NOTE | 2025-01-20 09:46 | PN.HOSP_ITS ---
Reason for Visit Reason for Visit: Diagnoses Obesity, unspecified (01/19/25) Hyperlipidemia, unspecified (01/19/25) Diplopia (01/19/25) Bradycardia, unspecified (01/19/25) Ataxia, unspecified (01/19/25) Personal history of other diseases of the circulatory system (01/19/25) Objective Data Objective Data Vital Signs: Vital Signs Temp Pulse Resp BP Pulse Ox O2 Del Method 97.9 F 51 L 12 154/75 H 92 Room Air 01/20/25 07:20 01/20/25 07:50 01/20/25 07:50 01/20/25 07:20 01/20/25 07:51 01/20/25 09:27 Oxygen Delivery Method Room Air Weight: 260 lb 2.327 oz Body Mass Index (BMI) 35.2 Intake & Output: Intake and Output for Last 24 Hours 01/18/25 01/19/25 01/20/25 23:59 23:59 23:59 Output Total 300 / 300 Balance -300 / -300 Lab / Micro Data 01/19/25 17:59 01/19/25 17:59 Labs: Laboratory Results - last 24 hr 01/19/25 17:57: POC Glucose 112 H 01/19/25 17:59: WBC 7.6, RBC 4.78, Hgb 13.6, Hct 40.6, MCV 84.9, MCH 28.5, MCHC 33.5, RDW Std Deviation 45.1 H, RDW Coeff of Mariella 14.6, Plt Count 223, MPV 9.2, Immature Gran % (Auto) 0.300, Neut % (Auto) 59.5, Lymph % (Auto) 26.4, [place] % (Auto) 8.1, Eos % (Auto) 4.8, Baso % (Auto) 0.9, Absolute Neuts (auto) 4.5, Absolute Lymphs (auto) 2.02, Nucleated RBC % 0, PT 14.7, INR 1.1, APTT 28.2, Sodium 139, Potassium 4.2, Chloride 107, Carbon Dioxide 22.4, Anion Gap 10, BUN 17, Creatinine 0.83, Estim Creat Clear Calc 94.66, Est GFR (MDRD) Non-Af 89, B UN/Creatinine Ratio 20.2 H, Glucose 118 H, Calcium 8.9, Troponin T High Sens 14, Vitamin B12 761 01/19/25 18:04: Hemoglobin A1c 6.9 H, TSH 5.930 H, Ethyl Alcohol < 10.1 01/19/25 19:37: Troponin T Hi Sens 2 Hr 18 01/19/25 22:26: Urine Opiates Screen NEGATIVE, U Buprenorphine Qual NEGATIVE, Ur Oxycodone Screen NEGATIVE, Urine Methadone Screen NEGATIVE, Urine Fentanyl Screen NEGATIVE, Ur Barbiturates Screen NEGATIVE, Ur Phencyclidine Scrn NEGATIVE, Ur Amphetamines Screen NEGATIVE, U Benzodiazepines Scrn NEGATIVE, Urine Cocaine Screen NEGATIVE, U Cannabinoids Screen NEGATIVE 01/20/25 05:19: Serum Folate 18.20, Free T4 0.80, Free T3 pg/dL 2.2 Radiography Diagnostic Testing: Radiology Impression Brain CT 01/19/25 17:40 IMPRESSION: No acute intracranial abnormality. Reading [facility] Head/Neck CTA 01/19/25 17:40 IMPRESSION: No large vessel occlusion. Mild (40%) right carotid stenosis. Mild (20%) left carotid stenosis. Patent vertebral arteries bilaterally. 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 Reading Location: [id number] Rhythm Strip Rhythm Strip: A-fib Rate: 56 Ectopy: None Physical Exam Narrative Seen and examined. Patient sees double vision for distance mainly on the right upper quadrant/right lower quadrant. On the rightHe also had mild headache near her right eyebrow and frontal area. Had some balance. Review for double vision. Headache almost resolved No weakness Physical exam General: Alert, Oriented x3, Cooperative HEENT: Atraumatic, PERRLA, EOMI, Normocephalic. Diplopia on looking down on RLQ and RUQ. No hemianopia quadrant to Oral: No Gingival or Mucosal Lesions/ Ulcerations Neck: Supple, No JVD, Negative Carotid Bruits Chest wall/Lungs: Air entry diminished in bilateral lung bases. No crepitation/rhonchi Cardiovascular: Regular rate, Regular Rhythm, Normal S1, Normal S2, No M/G/R Abdomen: Bowel Sounds Present, Soft, Non Tender, Non-Distended : No dysuria. No renal angle tenderness. No suprapubic tenderness. Extremities: No edema, Capillary Refill Less than 3 Seconds Skin: No rashes, No breakdown Musculoskeletal: No Tenderness to Palpation of Joints or Extremities Neurological: Cranial nerves II-XII grossly intact, DTR 2+/4. Finger-nose and heel valenzuela test are negative. Psych/Mental Status: Normal Affect, Appropriate. Assessment & Plan Assessment/Plan (1) Diplopia: (2) Ataxia: (3) History of hypertension: (4) Hyperlipidemia: QUALIFIERS: Hyperlipidemia type: unspecified Qualified Code(s): E 78.5 - Hyperlipidemia, unspecified (5) Bradycardia: (6) Obesity (BMI 30-39.9): PLAN: Plan 79-year-old gentleman was sent to ED by ophthalmology due to concern for stroke with complaint of double vision in right eye, headache and balance issues since Saturday evening. There is concern for 3rd nerve biopsy. Mild headache. No weakness in the arms or legs 1. 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 Patient went for MRI but had severe claustrophobia despite Xanax. Could not do MRI. Will repeat test tomorrow. Patient was seen by neurologist recommended CRP and ESR. Continue baby aspirin and Lipitor. 2. Essential Hypertension; on benazepril -blood pressure is durably controlled 127. Diastolic pressure high but I do not think it is accurate. 3. Hyperlipidemia; on atorvastatin - Resume statin. Lipid profile. 4. Chronic bradycardia: Heart rate is 53 per blood. Patient not having any symptoms of bradycardia including dizziness lightheadedness or hypotension. Current heart rate is sinus about 67/min. 5. Obesity; with BMI of 35.7 KG per square meter. Obesity grade 2 6. Diabetes mellitus type 2: A1c 6.9%. Glucose 118. Accu-Chek before meals and at bedtime with Humalog sliding scale coverage and hypoglycemia protocol. 7. Chronic stable intermittent asthma; on Breztri BID plus prn albuterol inhaler 8. History of migraine headaches; on prn Excedrin - Continue as needed Excedrin as before. 9. BPH; on saw palmetto - Stable. 10. ED; on as needed tadalafil - Noted. Patient will need to be reevaluated to see if this agent is appropriate for him once the stroke workup is complete. 11. Chronic degenerative arthritis of back. 12. DVT prophylaxis: Heparin 513 subcutaneous twice daily. DVT prophylaxis - Heparin 5,000U subcu twice daily plus SCDs. Charges/Coding Visit Charges Inpatient E&M: 60469 Subs Hosp L2
[2025-01-20] MEDS: ALPRAZolam 0.5 MG Tablet PO (10:06)
--- NOTE | 2025-01-20 13:01 | NEURO.CONS ---
Assessment and Plan: Neuro Assessment/Plan This is an 79-year-old gentleman with a past medical history of hypertension, pre diabetes, stomach cancer whom teleneurology is consulted for double vision and cranial nerve palsy. My examination doesn't clearly localize to cranial nerve 3 as there appears to be involvement of CN6, but examination is limited due to my inability to examine the patient in person. There is no involvement of the pupil. Concern for brainstem stroke, or isolated cranial nerve palsy. 1. Recommend MRI brain with and without contrast with thin cuts through the brainstem 2. Recommend to add ESR/CRP to lab work-up 3. Agree with ASA 81mg and Lipitor 4. Please check LDL and hemoglobin A1c. LDL goal <70 5. Normotension BP goals (chcf BP goal <130/80) I personally attended this patient and spent a total time of 50 minutes evaluating this patient including clinical assessment, review of chart, medical history imaging, and determining appropriate treatment and workup. HPI Consult Data Date of Consult: 01/20/25 HPI Narrative HPI Narrative: This is an 79-year-old gentleman with a past medical history of hypertension, pre-diabetes, stomach cancer whom teleneurology is consulted for double vision and cranial nerve palsy. ?Kirill reports symptom onset as 01/15/25 when he developed a headache and double vision. He reports binocular double vision, duplicate is horizontal and occurs when looking up and down (not straight forward).?He was evaluated Saturday01/19/25 by his local eye doctor who told him he had a 3rd nerve palsy. He was instructed to go to the ER and get evaluated. He reports today symptoms may be slightly improved, experiencing less double vision than previous. He underwent a CTA brain and neck that did not show significant stenosis or aneurysm. He underwent CT head which was non-acute. An MRI brain was attempted, but not able to be completed. ROS: Constitutional: ?denies fevers Neurology: Ongoing headache, dull throbbing ache right sided, positive for light sensitivity CV: reports bradycardia (chronic) [facility] Medical History Prostate disease Gastric reflux Wears hearing aid Loss of hearing Cancer High cholesterol Non-smoker Chest pain Erectile dysfunction Back pain Eczema Risk for falls BPH (benign prostatic hyperplasia) Irritable bowel syndrome Type 2 diabetes mellitus Hyperlipidemia Hypercholesterolemia Positive colorectal cancer screening using Cologuard test Asthma Hypertension History of back problems Home Medications ?Medication ?Instructions ?Recorded ?Last Taken ?Type atorvastatin 20 mg tablet 20 mg PO DAILY 02/25/19 01/18/25 History benazepril 20 mg tablet 20 mg PO DAILY 02/25/19 01/18/25 History albuterol sulfate 90 mcg/actuation 2 puff inhalation Q6H PRN 02/28/23 Unknown History aerosol inhaler shortness of breath or wheezing saw palmetto 160 mg capsule 160 mg PO DAILY 02/28/23 01/19/25 History tadalafil 5 mg tablet (Cialis) 5 mg PO DAILY 02/28/23 01/19/25 History antiarthritic combination no.2 900 900 mg PO DAILY 08/08/23 01/19/25 History mg tablet (glucosamine-chondroitin) aspirin 325 mg tablet 650 mg PO QHS PRN headache 01/19/25 01/18/25 History mxkkert-bxhxfncwkyimn-sstwcvom 250 1 tab PO DAILY PRN headache 01/19/25 01/19/25 History mg-250 mg-65 mg tablet (Excedrin Migraine) budesonide 160 mcg-glycopyr 9 2 inh inhalation DAILY 01/19/25 01/18/25 History mcg-formot 4.8 mcg/actuation HFA inhaler (Breztri Aerosphere) Allergy/AdvReac Type Severity Reaction Status Date / Time No Known Allergies Allergy Verified 01/19/25 17:10 Family History Mother Breast cancer Diabetes Hypertension Sister Breast cancer Brother Prostate cancer Father CAD (coronary artery disease) Son Hypertension Autoimmune liver disease Other CVA (cerebral vascular accident) Surgical History History of cardiac catheterization History of tonsillectomy and adenoidectomy History of gastric surgery repairbilateral cataract surgery repair broken collar bone Social History household members: spouse housing: house Smoking Status: Never smoker alcohol intake: current alcohol intake frequency: a few times a week Alcohol type: hard liquor details: Drinks a bottle of whiskey per week. Occasional wine caffeine: No what type of physical activity do you participate in: walking frequency: 3-4 times per week Vital Signs Vital Signs Vital Signs: 01/19/25 17:10 01/19/25 17:53 01/19/25 18:15 Temperature 96.9 F L Temperature Source Temporal Pulse Rate 58 L 50 L Pulse Strength Respiratory Rate 16 14 Respiratory Effort Respiratory Depth Respiratory Pattern Blood Pressure 150/77 H 133/86 H Blood Pressure Mean 101 97 Blood Pressure Source Blood Pressure Position Blood Pressure Location Pulse Ox 96 98 95 Oxygen Delivery Method Room Air Room Air 01/19/25 19:00 01/19/25 20:00 01/19/25 20:27 Temperature 98 F Temperature Source Pulse Rate 73 48 L 48 L Pulse Strength Respiratory Rate 18 21 H 21 H Respiratory Effort Respiratory Depth Respiratory Pattern Blood Pressure 133/79 H 149/79 H 149/79 H Blood Pressure Mean 97 102 102 Blood Pressure Source Blood Pressure Position Blood Pressure Location Pulse Ox 98 98 98 Oxygen Delivery Method 01/19/25 22:43 01/19/25 23:00 01/19/25 23:05 Temperature 97.6 F L Temperature Source Oral Pulse Rate 42 L 42 L Pulse Strength Respiratory Rate 18 16 Respiratory Effort Normal Non-Labored Respiratory Depth Normal Respiratory Pattern Normal Normal Blood Pressure 184/84 H Blood Pressure Mean 117 Blood Pressure Source Monitor Blood Pressure Position Semi-Fowlers Blood Pressure Location Right Arm Pulse Ox 97 Oxygen Delivery Method Room Air Room Air 01/20/25 03:00 01/20/25 03:14 01/20/25 07:14 Temperature 97.6 F L 97.9 F Temperature Source Oral Oral Pulse Rate 47 L 50 L 51 L Pulse Strength Respiratory Rate 16 18 Respiratory Effort Respiratory Depth Respiratory Pattern Blood Pressure 161/67 H 154/75 H Blood Pressure Mean 98 101 Blood Pressure Source Monitor Monitor Blood Pressure Position Supine Semi-Fowlers Blood Pressure Location Right Arm Left Arm Pulse Ox 95 95 Oxygen Delivery Method Room Air Room Air 01/20/25 07:20 01/20/25 07:39 01/20/25 07:50 Temperature 97.9 F Temperature Source Oral Pulse Rate 51 L 51 L Pulse Strength Normal (2+) Respiratory Rate 16 12 Respiratory Effort Respiratory Depth Respiratory Pattern Normal Blood Pressure 154/75 H Blood Pressure Mean 101 Blood Pressure Source Monitor Blood Pressure Position Supine Blood Pressure Location Right Arm Pulse Ox 95 Oxygen Delivery Method Room Air 01/20/25 07:51 01/20/25 09:27 01/20/25 11:14 Temperature 98.6 F Temperature Source Oral Pulse Rate 57 L Pulse Strength Respiratory Rate 16 Respiratory Effort Normal Non-Labored Respiratory Depth Normal Respiratory Pattern Normal Blood Pressure 148/77 H Blood Pressure Mean 100 Blood Pressure Source Monitor Blood Pressure Position Sitting Blood Pressure Location Left Arm Pulse Ox 92 96 Oxygen Delivery Method Room Air Room Air Room Air 01/20/25 11:53 Temperature Temperature Source Pulse Rate 57 L Pulse Strength Respiratory Rate Respiratory Effort Normal Non-Labored Respiratory Depth Normal Respiratory Pattern Normal Blood Pressure Blood Pressure Mean Blood Pressure Source Blood Pressure Position Blood Pressure Location Pulse Ox 96 Oxygen Delivery Method Room Air Weight Weight: 118 kg Body Mass Index (BMI) 35.2 Physical Exam Neuro Neuro Narrative: Mental Status: The patient was alert and oriented to person, place, month, and year Language: speech is fluent and without dysarthria. Cranial Nerves: Pupils are equal and reactive to light. Left eye is unable to fully bury sclera on lateral gaze, left eye upward gaze with slightly less range of motion than same movements looking to the right (appears to be limitations in left LR and SO) no nystagmus is appreciated, ?is symmetric at rest and with activation, hearing is intact to conversational tone, tongue protrudes midline. Facial sensation is intact to light touch, and equal bilaterally. Motor: ?All extremities are antigravity. No pronator drift noted in upper or lower extremities. Sensation- Intact to light touch bilaterally Coordination: No clear ataxia on finger to nose bilaterally, some difficulty with finger to nose (past pointing) on left finger to nose (unclear if related to visual dysfunction) Lab / Micro Data 01/19/25 17:59 01/19/25 17:59 Labs: Laboratory Results - last 24 hr 01/19/25 17:57: POC Glucose 112 H 01/19/25 17:59: WBC 7.6, RBC 4.78, Hgb 13.6, Hct 40.6, MCV 84.9, MCH 28.5, MCHC 33.5, RDW Std Deviation 45.1 H, RDW Coeff of Mariella 14.6, Plt Count 223, MPV 9.2, Immature Gran % (Auto) 0.300, Neut % (Auto) 59.5, Lymph % (Auto) 26.4, [place] % (Auto) 8.1, Eos % (Auto) 4.8, Baso % (Auto) 0.9, Absolute Neuts (auto) 4.5, Absolute Lymphs (auto) 2.02, Nucleated RBC % 0, PT 14.7, INR 1.1, APTT 28.2, Sodium 139, Potassium 4.2, Chloride 107, Carbon Dioxide 22.4, Anion Gap 10, BUN 17, Creatinine 0.83, Estim Creat Clear Calc 94.66, Est GFR (MDRD) Non-Af 89, BUN/Creatinine Ratio 20.2 H, Glucose 118 H, Calcium 8.9, Troponin T High Sens 14, Vitamin B12 761 01/19/25 18:04: Hemoglobin A1c 6.9 H, TSH 5.930 H, Ethyl Alcohol < 10.1 01/19/25 19:37: Troponin T Hi Sens 2 Hr 18 01/19/25 22:26: Urine Opiates Screen NEGATIVE, U Buprenorphine Qual NEGATIVE, Ur Oxycodone Screen NEGATIVE, Urine Methadone Screen NEGATIVE, Urine Fentanyl Screen NEGATIVE, Ur Barbiturates Screen NEGATIVE, Ur Phencyclidine Scrn NEGATIVE, Ur Amphetamines Screen NEGATIVE, U Benzodiazepines Scrn NEGATIVE, Urine Cocaine Screen NEGATIVE, U Cannabinoids Screen NEGATIVE 01/20/25 05:19: Serum Folate 18.20, Free T4 0.80, Free T3 pg/dL 2.2 Rhythm Strip Rhythm Strip: A-fib Rate: 56 Ectopy: None Imaging Radiology Impression Brain CT 01/19/25 17:40 IMPRESSION: No acute intracranial abnormality. [facility] Head/Neck CTA 01/19/25 17:40 IMPRESSION: No large vessel occlusion. Mild (40%) right carotid stenosis. Mild (20%) left carotid stenosis. Patent vertebral arteries bilaterally. 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 Reading Location: [id number] Active Medications Active Medications Active Medications: Current Medications Generic Name Dose Route Start Last Admin Trade Name Freq PRN Reason Stop Dose Admin Acetaminophen 650 mg 01/19/25 21:50 Acetaminophen 325 Mg Tablet PO Q6H PRN PRN Pain 1-5/10 Or Fever>99.6 Albuterol Sulfate 2.5 mg 01/19/25 22:00 Albuterol 2.5 Mg/3 Ml Vial.Neb. INHALATION Q4H PRN PRN shortness of breath or wheezing Albuterol/Ipratropium 3 ml 01/19/25 22:00 Ipratropium/Albuterol Sulfate 3 Ml Ampul.Neb INHALATION Q6HWA.RT KELLIE Aspirin 650 mg 01/19/25 21:50 Aspirin 325 Mg Tablet PO QHS PRN PRN headache Aspirin 81 mg 01/20/25 08:00 01/20/25 08:41 Aspirin 81 Mg Tab.Chew PO 81 mg BREAKFAST KELLIE Administration Atorvastatin Calcium 20 mg 01/19/25 22:00 01/19/25 23:23 Atorvastatin Calcium 20 Mg Tablet PO 20 mg QHS KELLIE Administration Budesonide 0.5 mg 01/19/25 22:00 01/20/25 07:49 Budesonide Respules 0.5 Mg/2 Ml Ampul.Neb. INHALATION 0.5 mg Q12H.RT KELLIE Administration Heparin Sodium (Porcine) 5,000 unit 01/19/25 22:00 01/20/25 08:41 Heparin Injection (Vial) 5,000 Unit/Ml Vial SC 5,000 unit BID KELLIE Administration Sodium Chloride 100 mls @ 15 mls/hr 01/19/25 22:11 IV .Q6H40M PRN Saline Flush Sodium Chloride 100 mls @ 15 mls/hr 01/19/25 22:11 IV .Q6H40M PRN Additional IVPB Infusion Morphine Sulfate 2 mg 01/19/25 21:50 Morphine 2 Mg/Ml Syringe IV Q4H PRN PRN Pain Score 6-10 Sodium Chloride 10 - 40 ml 01/19/25 22:11 01/19/25 23:24 0.9% Saline Lock 10 Ml Syringe IV 10 ml UD PRN Administration SALINE FLUSH NIHSS NIHSS Nursing Documentation NIHSS Nursing Documentation: NIHSS: Ischemic Stroke/TIA Start: 01/19/25 21:50 Text: For PCU Patients: NIH and Neuro Check every 4 Status: Active hours, PRN and with change in RN caregiver. Freq: [id number] Protocol: Activity Type Activity Date Activity User E-sign Co-sign Detail Recorded Client Recorded Date Recorded By Document 01/20/25 11:14 SC [id number] 01/20/25 11:49 SC 01/20/25 11:14 NIH Stroke Scale [NIHSS] A score of 0 is normal or asymptomatic . Total possible score is 42. Inpatient: RN or Physician to activate a stroke alert for onset of new stroke symptoms or with NIHSS increase >/= 3 points. Following change in neurological status, NIHSS will be performed per physician order or more frequently PRN. -1a. Level of Consciousness 0 - Alert; keenly responsive -1b. LOC Questions 0 - Answers BOTH questions correctly -1c. LOC Commands 0 - Performs BOTH tasks correctly -2. Best Gaze 1 - Normal -3. Visual 0 - No visual loss -4. Facial Palsy 0 - Normal symmetrical movements -5a. Left Arm 0 - No drift; arm holds 90 ( or 45) degrees for full 10 seconds -5b. Right Arm 0 - No drift; arm holds 90 ( or 45) degrees for full 10 seconds -6a. Left Leg 0 - No drift; leg holds 30- degree position for full 5 seconds -6b. Right Leg 0 - No drift; leg holds 30- degree position for full 5 seconds -7. Limb Ataxia 1 - Present in 1 limb -8. Sensory 0 - Normal; no sensory loss -9. Best Language 0 - No aphasia; normal -10. Dysarthria 0 - Normal -11. Extinction and Inattention 0 - No abnormality -Total 1 Query Text:A score of 0 is normal or asymptomatic. Total possible score is 42 . ED: Notify Physician for NIHSS increase by > / = 3 points. Inpatient: RN or Physician to activate a stroke alert for NIHSS increase of > / = 3 points. Coma Scale [Assess] -Eye Opening Spontaneous -Motor Obeys Commands -Verbal Oriented [Total] -Coma Scale Total 15
--- NOTE | 2025-01-20 15:18 | CASEMGMT ---
Met with patient to complete BHATTI form. BHATTI form explained to patient who voiced understanding and signed form. Original form placed in pt?s chart and copy provided to patient. Adrianna Olmos, Discharge Planning Asst
[2025-01-20 17:51] LABS: CRP < 3.00 mg/L (0.0-3.0)
[2025-01-20 20:44] LABS: Cholesterol 118 mg/dL (<=200); High Density Lipoprotein 36 mg/dL; Low Density Lipoprotein Calc. 70 mg/dL; Triglycerides 64 mg/dL; Very Low Density Lipoprotein 13 mg/dL (5-40); cholesterol:hdl ratio screen 3.31
[2025-01-20 21:09] LABS: Erythrocyte Sedimentation Rate 21 mm/hr (0-20)
[2025-01-20] MEDS: Atorvastatin Calcium 20 MG Tablet PO (23:30)
[2025-01-21] VITALS (9 sets, daily range): BP systolic 117–157; BP diastolic 65–82; PULSE 47–64; RESP 14–18; TEMP 36.1–36.5; O2SAT 90–95; BMI 35.2
--- NOTE | 2025-01-21 08:00 | MRI_ITS ---
EXAM: MRI BRAIN WITHOUT CONTRAST CLINICAL HISTORY: 79-year-old male, concern for cranial nerve 3 palsy with diplopia, concern for CVA, issues with balance. History of stomach cancer. COMPARISON: CT head and CTA head and neck 01/19/2025. TECHNIQUE: MRI of the brain was performed according to standard departmental protocol. FINDINGS: No area of restricted diffusion identified on DWI images. Scattered mild supratentorial T2 hyperdensities. No additional abnormal T2 bright signal in the white matter is identified. The ventricles, sulci, and cisterns are age-appropriate in size. There is no evidence of intracranial bleed or focal infarction. There is no midline shift, mass effect, or extra-axial collection. The basal ganglia, chaim, pituitary, corpus callosum and cerebellum appear normal. A few scattered opacified bilateral ethmoid air cells. Minimal mucosal thickening of the left maxillary sinus. The sinuses are otherwise unremarkable. No intraorbital tumor or mass. Prior ocular lens replacements. No mass within the midbrain or cavernous sinus visualized by noncontrast examination. The flow voids of the major intracranial vessels are grossly patent. The visualized extracranial structures, within limits of technique, are not otherwise remarkable. MRI/Brain without Contrast IMPRESSION: 1. No acute intracranial finding. 2. No intraorbital, midbrain or cavernous sinus abnormality to explain patient' s symptoms. If continued concern, imaging with contrast could be obtained for further evaluation. 3. Mild white matter disease. Reading Location: [id number]
[2025-01-21] MEDS: Aspirin 81 MG TAB.CHEW PO (08:22)
[2025-01-21] MEDS: Acetaminophen 325 MG Tablet 650 MG PO (08:22)
[2025-01-21] MEDS: Heparin Injection (Vial) 5,000 UNIT/ML VIAL 5000 UNIT SC (08:22)
[2025-01-21] MEDS: 0.9% Saline Lock 10 ML Syringe IV (09:03)
[2025-01-21] MEDS: Lorazepam 2 MG/ML WCH Syringe 0.5 MG IV (09:03)
--- NOTE | 2025-01-21 09:47 | NURSING ---
NIHSS not completed on time as patient is off the floor getting MRI of Brain completed. NIHSS will be completed when patient returns to the floor.
[2025-01-21] MEDS: Ipratropium/Albuterol Sulfate 3 ML AMPUL.NEB INHALATION (12:44)
--- NOTE | 2025-01-21 13:31 | CON.PCM.NE_ITS ---
Assessment and Plan: Neuro Assessment/Plan This is an 79-year-old gentleman with a past medical history of hypertension, pre-diabetes, stomach cancer whom teleneurology is consulted for double vision and cranial nerve palsy. On today's examination he has limited ability of left eye lateral gaze (unable to fully bury his sclera) and upper gaze. Given lateral gaze does not trigger double vision, but upper and lower gaze dose, lateral gaze palsy may be chronic and not symptomatic. While MRI imaging does not show stroke, it may have been small enough to be missed, the other differential being ischemic CN3rd palsy. Would recommend to follow up with local eye doctor, with referral to neuro-ophthalmology in the outpatient setting if needed. If symptoms were to worse, would consider MRI brain with contrast, however given normal ESR and improving symptoms etiology is unlikely to be inflammatory (would not expect etiology from cancer or inflammation to rapidly improve without treatment) 1. No further inpatient work-up, recommend outpatient neuro-ophthalmology evaluation if needed through his local director recreation/ophthlamologist HPI Consult Data Date of Consult: 01/21/25 HPI Narrative HPI Narrative: This is an 79-year-old gentleman with a past medical history of hypertension, pre-diabetes, stomach cancer whom teleneurology is consulted for double vision and cranial nerve palsy. ?Kirill reports symptom onset as 01/15/25 when he developed a headache and double vision. He reports binocular double vision, duplicate is horizontal and occurs when looking up and down (not straight forward).?He was evaluated Saturday01/19/25 by his local eye doctor who told him he had a 3rd nerve palsy. He was instructed to go to the ER and get evaluated. He reports today symptoms may be slightly improved, experiencing less double vision than previous. He underwent a CTA brain and neck that did not show significant stenosis or aneurysm. He underwent CT head which was non-acute. An MRI brain without contrast without evidence for brainstem stroke. Interval History: Kirill reports continued improvement in his vision. He reports the double vision occurring when looking down has improved and his eyes are able to coordinate a bit better. Still has mild headache over the right eye mainly. Since last evaluated he underwent MRI brain without contrast which did not show evidence for stroke. ESR 21. PFSH Medical History Prostate disease Gastric reflux Wears hearing aid Loss of hearing Cancer High cholesterol Non-smoker Chest pain Erectile dysfunction Back pain Eczema Risk for falls BPH (benign prostatic hyperplasia) Irritable bowel syndrome Type 2 diabetes mellitus Hyperlipidemia Hypercholesterolemia Positive colorectal cancer screening using Cologuard test Asthma Hypertension History of back problems Home Medications ?Medication ?Instructions ?Recorded ?Last Taken ?Type atorvastatin 20 mg tablet 20 mg PO DAILY 02/25/1912/30 History benazepril 20 mg tablet 20 mg PO DAILY 02/25/1912/30 History albuterol sulfate 90 mcg/actuation 2 puff inhalation Q 6H PRN 02/28/23 Unknown History aerosol inhaler shortness of breath or wheez ing saw palmetto 160 mg capsule 160 mg PO DAILY 02/28/23 0 01/19/25 History tadalafil 5 mg tablet (Cialis) 5 mg PO DAILY 02/28/23 01/19/25 History antiarthritic combination no.2 900 900 mg PO DAILY 06/2201/19/25 History mg tablet (glucosamine-chondroitin) aspirin 325 mg tablet 650 mg PO QHS PRN headache 0 01/19/25 01/18/25 History yqauixi-swawpzgkxpbfz-jbntlump 250 1 tab PO DAILY PRN headache 01/19/25 01/19/25 History mg-250 mg-65 mg tablet (Excedrin Migraine) budesonide 160 mcg-glycopyr 9 2 inh inhalation DAILY 0 01/19/25 01/18/25 History mcg-formot 4.8 mcg/actuation HFA inhaler (Breztri Aerosphere) Allergy/AdvReac Type Severity Reaction Status Date / Time No Known Allergies Allergy Verified 01/19/25 17:10 Family History Mother Breast cancer Diabetes Hypertension Sister Breast cancer Brother Prostate cancer Father CAD (coronary artery disease) Son Hypertension Autoimmune liver disease Other CVA (cerebral vascular accident) Surgical History History of cardiac catheterization History of tonsillectomy and adenoidectomy History of gastric surgery repairbilateral cataract surgery repair broken collar bone Social History household members: spouse housing: house Smoking Status: Never smoker alcohol intake: current alcohol intake frequency: a few times a week Alcohol type: hard liquor details: Drinks a bottle of whiskey per week. Occasional wine caffeine: No what type of physical activity do you participate in: walking frequency: 3-4 times per week Vital Signs Vital Signs Vital Signs: 01/20/25 14:55 01/20/25 16:15 01/20/25 17:53 Temperature 98.3 F 97.9 F Temperature Source Oral Oral Pulse Rate 53 L 55 L Pulse Strength Respiratory Rate 14 18 Respiratory Effort Normal Non-Labored Respiratory Depth Normal Respiratory Pattern Normal Blood Pressure 127/109 H 127/94 H Blood Pressure Mean 115 105 Blood Pressure Source Monitor Monitor Blood Pressure Position Semi-Fowlers Sitting Blood Pressure Location Left Arm Right Forearm Pulse Ox 93 96 Oxygen Delivery Method Room Air Room Air Room Air 01/20/25 20:01 01/20/25 20:01 01/20/25 21:53 Temperature 98.6 F Temperature Source Temporal Pulse Rate 54 L 60 Pulse Strength Respiratory Rate 18 16 Respiratory Effort Respiratory Depth Respiratory Pattern Normal Blood Pressure 132/65 H Blood Pressure Mean 87 Blood Pressure Source Monitor Blood Pressure Position Semi-Fowlers Blood Pressure Location Right Arm Pulse Ox 93 96 Oxygen Delivery Method Room Air Room Air 01/20/25 22:00 01/20/25 22:00 01/21/25 01:47 Temperature 97 F L Temperature Source Temporal Pulse Rate 50 L Pulse Strength Normal (2+) Respiratory Rate 16 Respiratory Effort Normal Non-Labored Respiratory Depth Normal Respiratory Pattern Normal Blood Pressure 157/70 H Blood Pressure Mean 99 Blood Pressure Source Monitor Blood Pressure Position Semi-Fowlers Blood Pressure Location Right Forearm Pulse Ox 94 Oxygen Delivery Method Room Air Room Air 01/21/25 05:47 01/21/25 07:15 01/21/25 07:15 Temperature 97.3 F L Temperature Source Temporal Pulse Rate 60 64 Pulse Strength Respiratory Rate 16 18 Respiratory Effort Respiratory Depth Respiratory Pattern Normal Blood Pressure 150/82 H Blood Pressure Mean 104 Blood Pressure Source Monitor Blood Pressure Position Semi-Fowlers Blood Pressure Location Right Forearm Pulse Ox 94 94 Oxygen Delivery Method Room Air Room Air 01/21/25 08:30 01/21/25 08:30 01/21/25 09:38 Temperature Temperature Source Pulse Rate 54 L Pulse Strength Normal (2+) Respiratory Rate 16 Respiratory Effort Respiratory Depth Respiratory Pattern Blood Pressure 139/71 H Blood Pressure Mean 93 Blood Pressure Source Monitor Blood Pressure Position Semi-Fowlers Blood Pressure Location Right Arm Pulse Ox 90 Oxygen Delivery Method Room Air Room Air 01/21/25 09:48 01/21/25 09:55 01/21/25 10:24 Temperature 97.7 F L Temperature Source Oral Pulse Rate 50 L 47 L 57 L Pulse Strength Respiratory Rate 18 14 16 Respiratory Effort Respiratory Depth Respiratory Pattern Blood Pressure 119/65 117/69 139/71 H Blood Pressure Mean 83 85 93 Blood Pressure Source Monitor Monitor Monitor Blood Pressure Position Semi-Fowlers Supine Semi-Fowlers Blood Pressure Location Right Arm Right Arm Right Arm Pulse Ox 91 92 95 Oxygen Delivery Method Room Air Room Air Room Air Weight Weight: 118 kg Body Mass Index (BMI) 35.2 Physical Exam Neuro Neuro Narrative: Mental Status: The patient was alert and interactive with the team. Language: speech is fluent and without dysarthria. Cranial Nerves: Pupils are equal and reactive to light. Left eye with limited upgaze and left lateral gaze, no nystagmus is appreciated face is symmetric at rest and with activation, hearing is intact to conversational tone, tongue protrudes midline. Facial sensation is intact to light touch, and equal bilaterally. Motor: ?All extremities are antigravity. No pronator drift noted in upper or lower extremities. Sensation- Intact to light touch bilaterally Coordination: No dysmetria on [id number], finger follow finger or [id number]. No truncal ataxia Lab / Micro Data 01/19/25 17:59 01/19/25 17:59 Labs: Laboratory Results - last 24 hr 01/20/25 05:19: ESR 21 H, C-React Prot Ext Range < 3.00, Triglycerides 64, Cholesterol 118, LDL Cholesterol, Calc 70, VLDL Cholesterol 13, HDL Cholesterol 36 L, Cholesterol/HDL Ratio 3.31 Rhythm Strip Rhythm Strip: A-fib Rate: 56 Ectopy: None Imaging Radiology Impression Carotid Duplex 01/19/25 20:50 Interpretation Summary Mild (<50%) stenosis right extracranial internal carotid. Mild (<50%) stenosis left extracranial internal carotid. Patent and antegrade vertebrals bilaterally. Ordering Physician: Tony Chapman Referring Physician: Reji Waite MD Performed By: Fern Sosa RVT Brain MRI 01/21/25 08:00 IMPRESSION: 1. No acute intracranial finding. 2. No intraorbital, midbrain or cavernous sinus abnormality to explain patient's symptoms. If continued concern, imaging with contrast could be obtained for further evaluation. 3. Mild white matter disease. Reading Location: [facility] Active Medications Active Medications Active Medications: Current Medications Generic Name Dose Route Start Last Admin Trade Name Freq PRN Reason Stop Dose Admin Acetaminophen 650 mg 01/19/25 21:50 01/21/25 08:22 Acetaminophen 325 Mg Tablet PO 650 mg Q6H PRN PRN Administration Pain 1-5/10 Or Fever>99.6 Albuterol Sulfate 2.5 mg 01/19/25 22:00 Albuterol 2.5 Mg/3 Ml Vial.Neb. INHALATION Q4H PRN PRN shortness of breath or wheezing Albuterol/Ipratropium 3 ml 01/19/25 22:00 01/21/25 12:44 Ipratropium/Albuterol Sulfate 3 Ml Ampul.Neb INHALATION 3 ml Q6HWA.RT KELLIE Administration Aspirin 650 mg 01/19/25 21:50 Aspirin 325 Mg Tablet PO QHS PRN PRN headache Aspirin 81 mg 01/20/25 08:00 01/21/25 08:22 Aspirin 81 Mg Tab.Chew PO 81 mg BREAKFAST KELLIE Administration Atorvastatin Calcium 20 mg 01/19/25 22:00 01/20/25 23:30 Atorvastatin Calcium 20 Mg Tablet PO 20 mg QHS KELLIE Administration Budesonide 0.5 mg 01/19/25 22:00 01/20/25 19:59 Budesonide Respules 0.5 Mg/2 Ml Ampul.Neb. INHALATION 0.5 mg Q12H.RT KELLIE Administration Heparin Sodium (Porcine) 5,000 unit 01/19/25 22:00 01/21/25 08:22 Heparin Injection (Vial) 5,000 Unit/Ml Vial SC 5,000 unit BID KELLIE Administration Sodium Chloride 100 mls @ 15 mls/hr 01/19/25 22:11 IV .Q6H40M PRN Saline Flush Sodium Chloride 100 mls @ 15 mls/hr 01/19/25 22:11 IV .Q6H40M PRN Additional IVPB Infusion Lorazepam 0.5 mg 01/21/25 08:03 01/21/25 09:03 Lorazepam 2 Mg/Ml Wch Syringe IV 0.5 mg X1 PRN Administration claustrophobia Morphine Sulfate 2 mg 01/19/25 21:50 Morphine 2 Mg/Ml Syringe IV Q4H PRN PRN Pain Score 6-10 Sodium Chloride 10 - 40 ml 01/19/25 22:11 01/21/25 09:03 0.9% Saline Lock 10 Ml Syringe IV 10 ml UD PRN Administration SALINE FLUSH NIHSS NIHSS Nursing Documentation NIHSS Nursing Documentation: NIHSS: Ischemic Stroke/TIA Start: 01/19/25 21:50 Text: For PCU Patients: NIH and Neuro Check every 4 Status: Complete hours, PRN and with change in RN caregiver. Freq: [id number] Protocol: Activity Type Activity Date Activity User E-sign Co-sign Detail Recorded Client Recorded Date Recorded By Document 01/21/25 10:24 [id number] 01/21/25 10:29 01/21/25 10:24 NIH Stroke Scale [NIHSS] A score of 0 is normal or asymptomatic . Total possible score is 42. Inpatient: RN or Physician to activate a stroke alert for onset of new stroke symptoms or with NIHSS increase >/= 3 points. Following change in neurological status, NIHSS will be performed per physician order or more frequently PRN. -1a. Level of Consciousness 0 - Alert; keenly responsive -1b. LOC Questions 0 - Answers BOTH questions correctly -1c. LOC Commands 0 - Performs BOTH tasks correctly -2. Best Gaze 0 - Normal -3. Visual 0 - No visual loss -4. Facial Palsy 0 - Normal symmetrical movements -5a. Left Arm 0 - No drift; arm holds 90 ( or 45) degrees for full 10 seconds -5b. Right Arm 0 - No drift; arm holds 90 ( or 45) degrees for full 10 seconds -6a. Left Leg 0 - No drift; leg holds 30- degree position for full 5 seconds -6b. Right Leg 0 - No drift; leg holds 30- degree position for full 5 seconds -7. Limb Ataxia 0 - Absent -8. Sensory 0 - Normal; no sensory loss -9. Best Language 0 - No aphasia; normal -10. Dysarthria 0 - Normal -11. Extinction and Inattention 0 - No abnormality -Total 0 Query Text:A score of 0 is normal or asymptomatic. Total possible score is 42 . ED: Notify Physician for NIHSS increase by > / = 3 points. Inpatient: RN or Physician to activate a stroke alert for NIHSS increase of > / = 3 points. Coma Scale [Assess] -Eye Opening Spontaneous -Motor Obeys Commands -Verbal Oriented [Total] -Coma Scale Total 15
--- NOTE | 2025-01-21 13:55 | PCM.DC ---
Discharge Instructions Diet Discharge Diet: 2000 mg Sodium Diet DC O2, CPAP, BIPAP needs Home O2 Discharge instructions: No Dressing / Incision Discharge Activity: Return to Normal Activity Weight Bearing Status: Weight bearing as tolerated Dressing / Incision Call your doctor if you observe: Fever of 101 or Higher, Coldness, Increased Pain, Numbness or Tingling, Change in Color, Inability to urinate, Inability to have a bowel movement, Shortness of breath, Dizziness, Fainting spells, Swelling in the ankles, Chest pain, Prolonged hiccupping, Increased palpitations (irregular heartbeat) and Calf discomfort Follow Up Care When: IN 2 WEEKS Test Results: Test results from this visit will be discussed in further detail at your follow-up appointment, if applicable. Discharge Plan Admission Admit Date/Time: 01/19/25 20:44 Primary Reason for Your Visit: Diplopia. 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 Follow-up with PCP to refer to neurologist, Dr. Nicholas Nelson for headache as he gets intermittent headaches rule out chronic headache Discharge Orders/Prescriptions Prescriptions: New aspirin 81 mg Tablet,Chewable 81 mg PO BREAKFAST 30 Days Qty: 30 3RF Continued benazepril 20 mg tablet 20 mg PO DAILY atorvastatin 20 mg tablet 20 mg PO DAILY saw palmetto 160 mg capsule 160 mg PO DAILY Rx Instructions: give with meal/snack tadalafil [Cialis] 5 mg tablet 5 mg PO DAILY albuterol sulfate 90 mcg/actuation HFA aerosol inhaler 2 puff inhalation Q6H PRN (Reason: shortness of breath or wheezing) glucosamine-chondroitin 900 mg tablet 900 mg PO DAILY Breztri Aerosphere 160-9-4.8 mcg/actuation HFA aerosol inhaler 2 inh INHALATION DAILY Held Excedrin Migraine 250-250-65 mg tablet 1 tab PO DAILY PRN (Reason: headache) Hold Instructions: Do not use it while taking baby aspirin Discontinued aspirin 325 mg tablet 650 mg PO QHS PRN (Reason: headache) Referrals / Follow Up: Reji Waite MD [Primary Care Provider] - Disposition Disposition (needs filled in before D/C Order can be placed): Home, Self Care
--- NOTE | 2025-01-21 14:16 | PCM.DC.SUM ---
Providers Date of Admission: 01/19/25 Date of Discharge: 01/21/25 Primary Care Physician: Dr. Reji Waite MD Consultations 01/19/25 21:50 Consult: Tele-Neurology Routine Consulting Provider: [facility] Reason for Consult: Acute Ischemic Stroke/TIA EMERGENT Consult: No MD Notified: Yes Date Notified: 01/19/25 Time Notified: 06:17 Method of Notification: Answering Service Method of Consult:: Telemedicine Nursing Unit Staff Notify [facility] of Tele-Neurology Consult: Yes Reason For Visit: 3RD CRANIAL NERVE PALSY WITH DIPLOPIA, EVALUATE Diagnosis Discharge Diagnosis (1) Diplopia: Status: Acute Code(s): H53.2 - Diplopia (2) Ataxia: Status: Acute Code(s): R27.0 - Ataxia, unspecified (3) History of hypertension: Status: Acute Code(s): Z86.79 - Personal history of other diseases of the circulatory system (4) Hyperlipidemia: Status: Acute Code(s): E78.5 - Hyperlipidemia, unspecified Qualifiers: Hyperlipidemia type: unspecified Qualified Code(s): E78.5 - Hyperlipidemia, unspecified (5) Bradycardia: Status: Acute Code(s): R00.1 - Bradycardia, unspecified (6) Obesity (BMI 30-39.9): Status: Acute Code(s): E66.9 - Obesity, unspecified Plan 79-year-old gentleman was sent to ED by ophthalmology due to concern for stroke with complaint of double vision in right eye, headache and balance issues since Saturday evening. There is concern for 3rd nerve biopsy. Mild headache. No weakness in the arms or legs 1. Diplopia;, etiology unclear but the acute stroke ruled out- Admit to PCU under observation status. Patient went for MRI but had severe claustrophobia despite Xanax. Could not do MRI. Will repeat test tomorrow. Patient was seen by neurologist recommended CRP and ESR. Continue baby aspirin and Lipitor. 01/21: Patient is still has limited diplopia mainly left upper quadrant and right upper quadrant extreme gaze. No diplopia when he looks straight. MRI imaging does not show any stroke but may be small enough to be imaged therefore he recommended baby aspirin 81 mg daily. ESR 21 elevated but CRP normal. Fasting profile shows LDL 70 but HDL 36. TSH 5.9 but free T4 low normal. May be early onset subclinical hypothyroidism. Advised to repeat thyroid function test in 3 months with PCP. Patient on atorvastatin 20 mg daily and continued. Neurologist recommended to follow-up with [facility] Mild headache for 1 week: He stated he was having mild headache on the right side for 1 week and was taking Excedrin at about 10 AM and aspirin 650 mg at night. History of gastric cancer status post gastric surgery in the past. Patient is aware of the side effect of aspirin, gastric irritation, hypertension and other cardiac and kidney side effects. Therefore recommended to stop Excedrin and aspirin 650 mg daily 2. Essential Hypertension; on benazepril -blood pressure is durably controlled 127. Diastolic pressure high but I do not think it is accurate. 3. Hyperlipidemia; on atorvastatin - Resume statin. Lipid profile. 4. Chronic bradycardia: Heart rate is 53 per blood. Patient not having any symptoms of bradycardia including dizziness lightheadedness or hypotension. Current heart rate is sinus about 67/min. 5. Obesity; with BMI of 35.7 KG per square meter. Obesity grade 2 6. Diabetes mellitus type 2: A1c 6.9%. Glucose 118. Accu-Chek before meals and at bedtime with Humalog sliding scale coverage and hypoglycemia protocol. 7. Chronic stable intermittent asthma; on Breztri BID plus prn albuterol inhaler 8. History of migraine headaches; on prn Excedrin - Continue as needed Excedrin as before. 9. BPH; on saw palmetto - Stable. 10. ED; on as needed tadalafil - Noted. Patient will need to be reevaluated to see if this agent is appropriate for him once the stroke workup is complete. 11. Chronic degenerative arthritis of back. 12. DVT prophylaxis: Heparin 513 subcutaneous twice daily. DVT prophylaxis - Heparin 5,000U subcu twice daily plus SCDs. Discharge medication reconciliation done. Discharge follow-up instructions completed. Discharge process discussed with the patient and all questions were answered to patient's satisfaction. Follow with PCP in 1 to 2 weeks Total time spent, exact 35 minutes on discharge meds reconciliation, examination, coordination of care with nurses and ancillary staff, review of imaging and blood test and discussion with the patient on follow-up instructions. Medications at Discharge Home Medications atorvastatin 20 mg tablet 20 mg PO DAILY 02/25/19 benazepril 20 mg tablet 20 mg PO DAILY 02/25/19 albuterol sulfate 90 mcg/actuation aerosol inhaler 2 puff inhalation Q6H PRN shortness of breath or wheezing 02/28/23 saw palmetto 160 mg capsule 160 mg PO DAILY 02/28/23 tadalafil 5 mg tablet (Cialis) 5 mg PO DAILY 02/28/23 antiarthritic combination no.2 900 mg tablet (glucosamine-chondroitin) 900 mg PO DAILY 08/08/23 mzelmdx-wuliyrdtoqniv-hkpapeef 250 mg-250 mg-65 mg tablet (Excedrin Migraine) 1 tab PO DAILY PRN headache 01/19/25 Held on 01/21/25. Instructions: Do not use it while taking baby aspirin budesonide 160 mcg-glycopyr 9 mcg-formot 4.8 mcg/actuation HFA inhaler (Breztri Aerosphere) 2 inh inhalation DAILY 01/19/25 aspirin 81 mg chewable tablet 81 mg PO BREAKFAST 1 month #30 tabs 01/21/25 Physical Exam Narrative Seen and examined. Patient sees double vision for distance mainly on the extreme of right and left upper quadrants. Right upper headache has resolved. No weakness Physical exam General: Alert, Oriented x3, Cooperative HEENT: Atraumatic, PERRLA, EOMI, Normocephalic. Diplopia present. No hemianopia/quadrantropia Oral: No Gingival or Mucosal Lesions/ Ulcerations Neck: Supple, No JVD, Negative Carotid Bruits Chest wall/Lungs: Air entry diminished in bilateral lung bases. No crepitation/rhonchi Cardiovascular: Regular rate, Regular Rhythm, Normal S1, Normal S2, No M/G/R Abdomen: Bowel Sounds Present, Soft, Non Tender, Non-Distended : No dysuria. No renal angle tenderness. No suprapubic tenderness. Extremities: No edema, Capillary Refill Less than 3 Seconds Skin: No rashes, No breakdown Musculoskeletal: No Tenderness to Palpation of Joints or Extremities Neurological: Cranial nerves II-XII grossly intact, DTR 2+/4. Finger-nose and heel valenzuela test are negative. Psych/Mental Status: Normal Affect, Appropriate. Weight / BMI Weight Weight: 260 lb 2.327 oz Body Mass Index (BMI) 35.2 ABG / Lab / Microbiology Data 01/19/25 17:59 01/19/25 17:59 Laboratory: Laboratory Results - last 24 hr 01/20/25 05:19: ESR 21 H, C-React Prot Ext Range < 3.00, Triglycerides 64, Cholesterol 118, LDL Cholesterol, Calc 70, VLDL Cholesterol 13, HDL Cholesterol 36 L, Cholesterol/HDL Ratio 3.31 Radiography Diagnostic Testing: Radiology Impression Carotid Duplex 01/19/25 20:50 Interpretation Summary Mild (<50%) stenosis right extracranial internal carotid. Mild (<50%) stenosis left extracranial internal carotid. Patent and antegrade vertebrals bilaterally. Ordering Physician: Tony Chapman Referring Physician: Reji Waite MD Performed By: Fern Sosa RVT Brain MRI 01/21/25 08:00 IMPRESSION: 1. No acute intracranial finding. 2. No intraorbital, midbrain or cavernous sinus abnormality to explain patient's symptoms. If continued concern, imaging with contrast could be obtained for further evaluation. 3. Mild white matter disease. Reading Location: [id number] Instructions Discharge Diet: 2000 mg Sodium Diet Weight Bearing Status: Weight bearing as tolerated Call your doctor if you observe: Fever of 101 or Higher, Coldness, Increased Pain, Numbness or Tingling, Change in Color, Inability to urinate, Inability to have a bowel movement, Shortness of breath, Dizziness, Fainting spells, Swelling in the ankles, Chest pain, Prolonged hiccupping, Increased palpitations (irregular heartbeat) and Calf discomfort DC O2, CPAP, BIPAP Needs Home O2 Discharge instructions: No When: IN 2 WEEKS Meaningful Use Info Meaningful Use Meaningful Use Diagnoses (Choose all that apply): None applicable Ischemic Stroke Statin Dosing Therapy Reference: STATIN DOSE THERAPY REFERENCE: * Patients > 75 years receive moderate or high dose statin therapy. * Patients 75 years or YOUNGER should receive HIGH intensity statin dose unless contraindicated. You will be required to document reason for non-treatment if statin daily dose does not meet guidelines. HIGH DOSE STATIN THERAPY DAILY Atorvastatin > than or = to 40 mg Rosuvastatin > than or = to 20 mg Amlodipine + Atorvastatin > than or = to 2.5/40 mg Ezetimibe + Simvastatin 10/80 mg Simvastatin 80mg Discharge Plan Admission Admit Date/Time: 01/19/25 20:44 Primary Reason for Your Visit: Diplopia. Attending Provider: Gilbert Henriquez Primary Care Provider: Reji Waite Consulting Providers: Rodriguez Durham; Chris Arana; Nina Solares; Carolyn Sellers; Kamryn Benedict; Simone Blank; Mena Salas; Marcel Beyer; Kelvin Santillan; Raul Ashraf; Danitza Dodd; Colton Dave; Nicky Garcia; Kenya Hunter; Anthony Shea; Boyd Anthony; Zuleyma Scott; Andrey Smith; Sammie Apodaca; Luis Eduardo Melton; Tony Chapman Instructions Additional Instructions / Restrictions: Follow-up new product trainer at [facility] within 2-week. Follow-up with PCP to refer to neurologist, Dr. Nicholas Nelson for headache as he gets intermittent headaches rule out chronic headache Discharge Orders/Prescriptions Prescriptions: New aspirin 81 mg Tablet,Chewable 81 mg PO BREAKFAST 30 Days Qty: 30 3RF Continued benazepril 20 mg tablet 20 mg PO DAILY atorvastatin 20 mg tablet 20 mg PO DAILY saw palmetto 160 mg capsule 160 mg PO DAILY Rx Instructions: give with meal/snack tadalafil [Cialis] 5 mg tablet 5 mg PO DAILY albuterol sulfate 90 mcg/actuation HFA aerosol inhaler 2 puff inhalation Q6H PRN (Reason: shortness of breath or wheezing) glucosamine-chondroitin 900 mg tablet 900 mg PO DAILY Breztri Aerosphere 160-9-4.8 mcg/actuation HFA aerosol inhaler 2 inh INHALATION DAILY Held Excedrin Migraine 250-250-65 mg tablet 1 tab PO DAILY PRN (Reason: headache) Hold Instructions: Do not use it while taking baby aspirin Discontinued aspirin 325 mg tablet 650 mg PO QHS PRN (Reason: headache) Referrals / Follow Up: Reji Waite MD [Primary Care Provider] - Disposition Disposition (needs filled in before D/C Order can be placed): Home, Self Care Charges/Coding Visit Charges Inpatient E&M: 75342 Disch Hosp >30min
--- NOTE | 2025-01-21 14:24 | CASEMGMT ---
SW did not complete a PHQ 9 as patient did not have a Stroke or TIA. Zahraa SALMON
--- NOTE | 2025-01-21 14:45 | CASEMGMT ---
KAIDEN APARICIO NOTE: DC order is in. Per PT/OT and ST, no therapy is needed. KAIDEN CM to room. Introduced self and role. Pt resting in bed, @ bedside. Pt is independent @ home @ baseline. Aware he is to f/u with emergency spill response technician and PCP for referral to neurologist. Pt denies having any discharge needs or concerns. Jose AQUINON RN CM
--- NOTE | 2025-01-21 15:52 | PHA.DC.MR.R ---
Pharmacy [facility] Med Reconciliation Pharmacy Service has performed discharge medication reconciliation for this patient. The patient's discharge medication list was reviewed for discrepancies and discrepancies were resolved. Medications at Discharge Home Medications atorvastatin 20 mg tablet 20 mg PO DAILY 02/25/19 benazepril 20 mg tablet 20 mg PO DAILY 02/25/19 albuterol sulfate 90 mcg/actuation aerosol inhaler 2 puff inhalation Q6H PRN shortness of breath or wheezing 02/28/23 saw palmetto 160 mg capsule 160 mg PO DAILY 02/28/23 tadalafil 5 mg tablet (Cialis) 5 mg PO DAILY 02/28/23 antiarthritic combination no.2 900 mg tablet (glucosamine-chondroitin) 900 mg PO DAILY 08/08/23 eiglddd-kmrzhwmcakqou-ztwpdiyp 250 mg-250 mg-65 mg tablet (Excedrin Migraine) 1 tab PO DAILY PRN headache 01/19/25 Held on 01/21/25. Instructions: Do not use it while taking baby aspirin budesonide 160 mcg-glycopyr 9 mcg-formot 4.8 mcg/actuation HFA inhaler (Breztri Aerosphere) 2 inh inhalation DAILY 01/19/25 aspirin 81 mg chewable tablet 81 mg PO BREAKFAST 1 month #30 tabs 01/21/25
== END 2025-01-21 15:50 | disposition home or self-care (01) ==
LOC: ED 20:34 → PCU 21:31
PROVIDERS: Admitting Provider Internal Medicine; Emergency Provider Emergency Medicine; PCP Family Medicine; Visit Provider Internal Medicine
DX: H53.2 Diplopia (principal); E11.9 Type 2 diabetes mellitus without complications; R27.0 Ataxia, unspecified; R00.1 Bradycardia, unspecified; I65.23 Occlusion and stenosis of bilateral carotid arteries; I10 Essential (primary) hypertension; E66.9 Obesity, unspecified; R51.9 Headache, unspecified; F40.240 Claustrophobia; M47.9 Spondylosis, unspecified; Z68.35 Body mass index [BMI] 35.0-35.9, adult; N40.0 Benign prostatic hyperplasia without lower urinary tract symptoms; J45.20 Mild intermittent asthma, uncomplicated; E78.5 Hyperlipidemia, unspecified; Z79.82 Long term (current) use of aspirin; Z79.899 Other long term (current) drug therapy; Z90.3 Acquired absence of stomach [part of]; Z82.49 Family history of ischemic heart disease and other diseases of the circulatory system; Z82.3 Family history of stroke
CPT/HCPCS: 36415; 70450; 70496; 70498; 70551; 80048; 80061; 80307; 82077; 82607; 82746; 82962; 83036; 84439; 84443; 84481; 84484; 85025; 85610; 85652; 85730; 86140; 93005; 93306; 93880; 94640; 94762; 96372; 96374; 97162; 97166; 97802; 99221; 99285; Q9957; Q9967; A4216; C8929; G0378